=== PATIENT | female | born 1970 | race Caucasian/White ===

== ENCOUNTER 2016-05-22 02:44 | Emergency (ER) | payer OTHER ==
[~2016-05-22] VITALS: Ht 162.6 cm; Wt 137.0 kg
[~2016-05-22 02:44] MED LIST: ASPEC81 PO; B-COTAB18 PO; BUPR100T8 PO; CHOL1TAB42 PO; CYM/30 PO; DULO60CA44 PO; ETON1IMP2 SC; FERROUS SULFATE PO; TPM/50 PO; ZIPR20CA PO
[2016-05-22 02:49] VITALS: TEMP 37; Ht 162.6 cm; Wt 137.0 kg
[2016-05-22] MEDS ORDERED: ONDANSETRON INJ 2 MG/ML 2 ML VIAL IV STA (03:08)
[2016-05-22] MEDS ORDERED: HYDROmorphone INJ 1 MG/ML SYR IV STA (03:08)
[2016-05-22] MEDS ORDERED: SODIUM CHLORIDE 0.9% 1000ML 1,000 ML IV STA (03:08)
[2016-05-22 03:22] LABS: URINE APPEARANCE CLEAR (CLEAR); URINE BILIRUBIN NEG (NEG); URINE COLOR YELLOW; URINE EPITHELIAL CELL AUTO 0-5 /lpf (0-5); URINE NITRITE NEG (NEG); URINE PH 6.5 (4.5-7.5); URINE SPECIFIC GRAVITY 1.003 (1.000-1.030); UROBILINOGEN NEG (NEG); ZZUR CULT IF INDIC CLEAN CATCH NO
[2016-05-22 03:25] LABS: MANUAL MICROSCOPIC REQUIRED? NO; REVIEW REQ? NO
[2016-05-22 03:28] LABS: BASO % 0.2 %; BASO ABS # 0.02 K/uL (0-0.2); COMPLETE YES; EOS % 4.5 %; HEMATOCRIT 38.7 % (37-47); IG% 0.2 %; LYMPH % 21.6 %; LYMPH ABS # 2.02 K/uL (1.2-3.4); MEAN CELL VOLUME 86.8 fL (80-100); MEAN CORPUSCULAR HEMOGLOBIN 30.5 pg (25-34); MEAN CORPUSCULAR HGB CONC 35.1 g/dl (32-36); MONO % 7.2 %; NEUT % 66.3 %; PLATELET COUNT 290 K/uL (130-400); RED BLOOD COUNT 4.46 M/uL (4.2-5.4); WHITE BLOOD COUNT 9.34 K/uL (4.8-10.8)
--- NOTE | 2016-05-22 03:42 | EMERGENCY ROOM VISIT NOTE ---
History Report prepared by Tavon: Vicente Encinas Under the Supervision of: Dr. Neftali Sequeira M.D. First contact with patient: 02:54 Chief Complaint: ABDOMINAL PAIN Stated Complaint: UPR ABDOMINAL PAIN RADIATING TO BACK RIGHT SIDE Nursing Triage Summary: patient having mid epigastric pain since Friday night. Went to PCP Friday. was given prep for CT scan to be done today. History of Present Illness The patient is a 46 year old female who presents to the Emergency Room with complaints of constant upper abdominal pain beginning yesterday. She also complains of pain radiating into her back and right shoulder. She was seen by her PCP earlier today for similar symptoms, and was given prep for CT scan to be done today. The patient denies any fevers, vomiting, leg swelling, or diarrhea. Her pain is improved with movement. She notes that her pain initially began in her lower abdomen, but moved to the epigastric area today. The patient denies any recent falls or trauma. She notes that she felt somewhat short of breath yesterday, but not today. She has a history of a cholecystectomy. The patient states that she has been eating normally. She has no history of kidney stones, or ulcers. Source of History: patient Onset: Yesterday Position: abdomen (upper ) Timing: constant Modifying Factors (Relieving): movement Associated Symptoms: + back pain, No diarrhea, No fevers, No vomiting Note: The patient denies any leg swelling. She also complains of pain radiating into her right shoulder. Review of Systems See HPI for pertinent positives & negatives. A total of 10 systems reviewed and were otherwise negative. Past Medical & Surgical Medical Problems: (1) Hypertensive disorder, systemic arterial (2) Hypertriglyceridemia Family History No pertinent family history stated. Social History Smoking Status: Never Smoker Housing Status: lives with family Occupation Status: employed Current/Historical Medications Scheduled Aspirin Enteric Coated (Ecotrin Or Generic *), 81 MG PO QAM B-Complex Vitamins (Vitamin B Complex), 1 TAB PO QAM Bupropion (Wellbutrin Sr), 150 MG PO QAM Cholecalciferol (Vitamin D), 1 TABS PO QAM Ciprofloxacin Hcl (Cipro), 500 MG PO BID Duloxetine Hcl (Cymbalta), 30 MG PO QAM Duloxetine Hcl (Cymbalta), 60 MG PO HS Ondasetron Odt (Zofran Odt), 4-8 MG SL Q6H Topiramate (Topamax), 50 MG PO QAM Ziprasidone Hcl (Geodon), 20 MG PO BID [Ferrous Sulfate], 65 MG PO QAM Scheduled PRN Oxycodone Immediate Rel Tab (Roxicodone Ir), 1-2 TAB PO Q4H PRN for Severe Pain Miscellaneous Medications Etonogestrel (Nexplanon), 68 MG SC Allergies Coded Allergies: Latex1 -Allergic Contact Dermititis (Verified Allergy, Unknown, RASH, ) Venlafaxine (Verified Adverse Reaction, Unknown, high blood pressure, ) Physical Exam Vital Signs Date Time Temp Pulse Resp B/P Pulse Ox O2 Delivery O2 Flow Rate FiO2 05/22/16 06:31 71 18 154/79 97 Room Air 05/22/16 05:51 71 18 145/104 97 Room Air 05/22/16 02:49 37.0 83 16 154/89 96 Room Air Physical Exam GENERAL: Patient is uncomfortable appearing and in moderate distress. HEENT: No acute trauma, normocephalic atraumatic, mucous membranes moist, no nasal congestion, no scleral icterus. NECK: No stridor, no adenopathy, no meningismus, trachea is midline. LUNGS: No dyspnea. Clear to auscultation and equal bilaterally. No wheeze, no rhonchi. HEART: Regular rate and rhythm. No murmurs, rubs, gallops appreciated. ABDOMEN: Tenderness to palpation fo the right side of the abdomen, worse over the right lower quadrant. Soft, bowel sounds positive, no masses appreciated, no peritonitis. BACK: No midline tenderness, no CVA tenderness EXTREMITIES: Normal motion all extremities, no cyanosis, no edema. NEUROLOGIC: Alert and oriented, no acute motor or sensory deficits, no focal weakness, cranial nerves grossly intact. SKIN: No rash, no jaundice, no diaphoresis. Skin discoloration of the bilateral hands that appears chronic. Medical Decision & Procedures ER Provider Diagnostic Interpretation: CT results per statrad and my review. CT ABDOMEN & PELVIS: MRI pelvis 04/15/13 Mild thickening of the terminal ileus. No bowel obstruction. Mild to borderline prominent mesenteric lymph nodes. Fatty liver. Cholecystectomy. Small hiatal hernia. Normal appendix. No obstructive uropathy. 2.7 cm left uterine fibroid, seen on prior MRI. 2.5 cm cyst or follicle right ovary. Coronary artery disease. L5-S1 degenerative disc. Laboratory Results 05/22/16 03:15 Red Blood Count 4.46, Mean Corpuscular Volume 86.8, Mean Corpuscular Hemoglobin 30.5, Mean Corpuscular Hemoglobin Concent 35.1, Mean Platelet Volume 10.0, Neutrophils (%) (Auto) 66.3, Lymphocytes (%) (Auto) 21.6, Monocytes (%) (Auto) 7.2, Eosinophils (%) (Auto) 4.5, Basophils (%) (Auto) 0.2, Neutrophils # (Auto) 6.19, Lymphocytes # (Auto) 2.02, Monocytes # (Auto) 0.67, Eosinophils # (Auto) 0.42, Basophils # (Auto) 0.02 05/22/16 03:15 Test 05/22/16 00:00 05/22/16 03:15 Urine Color YELLOW Urine Appearance CLEAR (CLEAR) Urine pH 6.5 (4.5-7.5) Urine Specific [place] 1.003 (1.000-1.030) Urine Protein NEG (NEG) Urine Glucose (UA) NEG (NEG) Urine Ketones NEG (NEG) Urine Occult Blood NEG (NEG) Urine Nitrite NEG (NEG) Urine Bilirubin NEG (NEG) Urine Urobilinogen NEG (NEG) Urine Leukocyte Esterase NEG (NEG) Urine WBC (Auto) 0 /hpf (0-5) Urine RBC (Auto) 0-4 /hpf (0-4) Urine Hyaline Casts (Auto) 0 /lpf (0-5) Urine Epithelial Cells (Auto) 0-5 /lpf (0-5) Urine Bacteria (Auto) NEG (NEG) Urine Test NEG (NEG) White Blood Count 9.34 K/uL (4.8-10.8) Red Blood Count 4.46 M/uL (4.2-5.4) Hemoglobin 13.6 g/dL (12.0-16.0) Hematocrit 38.7 % (37-47) Mean Corpuscular Volume 86.8 fL (80-100) Mean Corpuscular Hemoglobin 30.5 pg (25-34) Mean Corpuscular Hemoglobin Concent 35.1 g/dl (32-36) Platelet Count 290 K/uL (130-400) Mean Platelet Volume 10.0 fL (7.4-10.4) Neutrophils (%) (Auto) 66.3 % Lymphocytes (%) (Auto) 21.6 % Monocytes (%) (Auto) 7.2 % Eosinophils (%) (Auto) 4.5 % Basophils (%) (Auto) 0.2 % Neutrophils # (Auto) 6.19 K/uL (1.4-6.5) Lymphocytes # (Auto) 2.02 K/uL (1.2-3.4) Monocytes # (Auto) 0.67 K/uL (0.11-0.59) Eosinophils # (Auto) 0.42 K/uL (0-0.5) Basophils # (Auto) 0.02 K/uL (0-0.2) RDW Standard Deviation 42.0 fL (36.4-46.3) RDW Coefficient of Variation 13.2 % (11.5-14.5) Immature Granulocyte % (Auto) 0.2 % Immature Granulocyte # (Auto) 0.02 K/uL (0.00-0.02) Anion Gap 10.0 mmol/L (3-11) Est Creatinine Clear Calc Drug Dose 139.5 ml/min Estimated GFR () 120.1 Estimated GFR (Non- 103.7 BUN/Creatinine Ratio 14.5 (10-20) Calcium Level 9.0 mg/dl (8.5-10.1) Total Bilirubin 0.4 mg/dl (0.2-1) Direct Bilirubin 0.1 mg/dl (0-0.2) Aspartate Amino Transf (AST/SGOT) 15 U/L (15-37) Alanine Aminotransferase (ALT/SGPT) 44 U/L (12-78) Alkaline Phosphatase 71 U/L (45-117) Troponin I < 0.015 ng/ml (0-0.045) Total Protein 7.0 gm/dl (6.4-8.2) Albumin 3.3 gm/dl (3.4-5.0) Lipase 125 U/L (73-393) Laboratory results as reviewed by me. Medications Administered Medications (Trade) Dose Ordered Sig/Mamadou Route Start Time Stop Time Status Last Admin Dose Admin Sodium Chloride (Nss 1000ml) 1,000 ml @ 999 mls/hr Q1H1M STAT IV 05/22/16 03:08 05/22/16 04:08 DC 05/22/16 03:17 999 MLS/HR Hydromorphone HCl (Dilaudid Inj) 1 mg NOW STAT IV 05/22/16 03:08 05/22/16 03:10 DC 05/22/16 03:16 1 MG Ondansetron HCl (Zofran Inj) 4 mg NOW STAT IV 05/22/16 03:08 05/22/16 03:10 DC 05/22/16 03:16 4 MG ECG Indication: abdominal pain Rate (beats per minute): 76 Rhythm: normal sinus Findings: no acute ischemic change, no ectopy ED Course 0300: The patient was evaluated in room A2. A complete history and physical exam was performed. 0308: Ordered Zofran Inj 4 mg IV, Dilaudid Inj 1 mg IV, NSS 1000 mL @ 999 mL/hr IV. 0405: I checked in on the patient. Her symptoms are much improved. 0627: Reevaluated the patient. Discussed results and discharge instructions: she verbalized understanding and agreement. The patient is ready for discharge. Medical Decision Differential: Appendicitis, Diverticulitis, PUD/Gastritis, Biliary Pathology, UTI, Pyelonephritis, Renal Colic, Bowel Obstruction, Aortic Pathology, Acute Coronary Syndrome, amongst other pathologies entertained. 46 yr old female arrives with complaint of rapidly worsening RUQ abdominal pain with radiation to rest of abdomen as well as periodic right shoulder blade pain. No difficulty breathing nor chest pain. She has no history nor risk factors for PE and thus I do not feel dimer necessary. She is uncomfortable though not in extremis and does not have an acute surgical abdomen on initial evaluation. Given PCP was to had CT w po/iv contrast in a few hours this morning we will do that here instead. Initial dose dilaudid with resolution of pain and feeling well over next few hours. She has normal labs and unremarkable UA. EKG/Trop negative. Symptoms not consistent with kidney stone and no blood in urine. CT showing terminal ilium inflammation which is concerning for inflammatory bowel disease, but also some mesenteric adenitis. Given level of pain she is having, ilium swelling seems reasonable to try some cipro as outpatient, but RTED if worsening symptoms or other concerns. Advised she contact PCP later today to let them know what happened and to have them review chart/CT findings. Advised discussing being seen by GI (last colonoscopy 6 yrs ago and supposed to be every 3 per patient). Stable and in no distress thus seems reasonable to discharge and understands she can return at any time if further concerns or issues. Impression Primary Impression: Terminal ileitis Additional Impression: Mesenteric adenitis Scribe Attestation The scribe's documentation has been prepared under my direction and personally reviewed by me in its entirety. I confirm that the note above accurately reflects all work, treatment, procedures, and medical decision making performed by me. Departure Information Dispostion Home / Self-Care Prescriptions Oxycodone Immediate Rel Tab (ROXICODONE IR) 5 Mg Tab 1-2 TAB PO Q4H Y for Severe Pain, #15 TAB Prov: Neftali Sequeira M.D. 05/22/16 Ondasetron Odt (ZOFRAN ODT) 4 Mg Tab 4-8 MG SL Q6H for Nausea, #20 TAB Prov: Neftali Sequeira M.D. 05/22/16 Ciprofloxacin Hcl (CIPRO) 500 Mg Tab 500 MG PO BID, #14 TAB Prov: Neftali Sequeira M.D. 05/22/16 Referrals Primary Care Provider Patient Instructions ED Adenitis Mesenteric, My [facility] Additional Instructions You have received a narcotic pain medication prescription. These medications may cause drowsiness and should not be used with other sedative medications. Do not drive, drink alcohol, perform dangerous activities, nor make important decisions after taking these medications. terminal supervisor use or inappropriate use may lead to addiction. Problem Qualifiers Primary Impression: Terminal ileitis Digestive disease complication type: without complication Qualified Codes: K50.00 - Crohn's disease of small intestine without complications
[2016-05-22 04:15] LABS: ALT/SGPT 44 U/L (12-78); AST/SGOT 15 U/L (15-37); BLOOD UREA NITROGEN 10 mg/dl (7-18); BUN/CREATININE RATIO 14.5 (10-20); CARBON DIOXIDE 25 mmol/L (21-32); CHLORIDE 106 mmol/L (98-107); CREATININE 0.69 mg/dl (0.60-1.20); GLUCOSE 116 mg/dl (70-99); POTASSIUM 3.8 mmol/L (3.5-5.1); SODIUM 141 mmol/L (136-145)
[2016-05-22 04:20] LABS: ALKALINE PHOSPHATASE 71 U/L (45-117)
[2016-05-22] MEDS ORDERED: OPTIRAY 320 IV PRN (05:00)
[2016-05-22 06:31] VITALS: BP 154/79; PULSE 71; O2SAT 97
[2016-05-22] MEDS ORDERED: OXYC1TAB3 PO (06:32)
[2016-05-22] MEDS ORDERED: ONDA4TAB10 SL (06:32)
[2016-05-22] MEDS ORDERED: CIPR-255 PO (06:32)
--- NOTE | 2016-05-22 07:59 | DIAGNOSTIC IMAGING REPORT ---
CT OF THE ABDOMEN AND PELVIS WITH CONTRAST CLINICAL HISTORY: Right upper quadrant abdominal pain radiating to back/abdomen. COMPARISON STUDY: MRI of the pelvis April 15, 2013 TECHNIQUE: Following IV administration of Optiray-320, axial images of the abdomen and pelvis were obtained from the lung bases to the proximal femurs. Images were reviewed in the axial, sagittal, and coronal planes. IV contrast was administered without complication. CT DOSE: 2200.66 mGy.cm FINDINGS: Extensive coronary artery calcification is incidentally noted. There is fatty infiltration of liver and moderate hepatomegaly. The adrenal glands, kidneys and pancreas are normal. There is no biliary ductal dilatation status post cholecystectomy. There is no peripancreatic infiltration. There is no hydronephrosis. The caliber and wall thickness of small and large bowel are normal. The appendix is normal. There is a 2.6 cm suspected right ovarian cyst. A left uterine fibroid measuring approximately 3.7 cm was shown on prior MRI of April 15, 2013. Submucosal fat deposition of the terminal ileum is chronic. IMPRESSION: 1. No acute process within the abdomen or pelvis. 2. Fatty liver and moderate hepatomegaly. 3. Normal appendix. Electronically signed by: Obie Ruiz M.D. 05/22/2016 7:57 AM Dictated Date/Time: 05/22/2016 7:45 AM
[2016-06-12] MEDS ORDERED: GARLTAB3 PO (15:40)
[2016-06-12] MEDS ORDERED: ASCO500T16 PO (15:40)
[2016-06-12] MEDS ORDERED: MULT-506 PO (15:40)
[2016-06-12] MEDS ORDERED: BUPR200T2 PO (15:40)
[2016-06-12] MEDS ORDERED: IRON PO (15:40)
== END 2016-05-22 06:40 | disposition home or self-care (01) ==
LOC: C.EDB 02:45 → C.EDA 06:40
DX: K50.00 Crohn's disease of small intestine without complications (principal); I10 Essential (primary) hypertension; E78.1 Pure hyperglyceridemia

== ENCOUNTER → 2016-06-06 | Outpatient (CLI) | payer OTHER ==
[~2016-06-06] MED LIST changes: +ASCO500T16 PO; +ASPI-461 PO; +ATR10 PO; +BUPR200T2 PO; +CIPR-255 PO; +DVN80 PO; +FERR50TA3 PO; +GARL1TAB8 PO; +GARLTAB3 PO; +IRON PO; +METH4PAK PO; +MULT-506 PO; +ONDA4TAB10 SL; +OXYC1TAB3 PO
--- NOTE | 2016-06-06 16:46 | MAMMOGRAPHY REPORT ---
BILATERAL DIGITAL SCREENING MAMMOGRAM WITH CAD: 06/06/2016 TECHNIQUE: Current study was also evaluated with a Computer Aided Detection (CAD) system. Bilatera l CC and MLO views were obtained. COMPARISON: 12/26/2010. BREAST COMPOSITION: There are scattered areas of fibroglandular density in both breasts. FINDINGS: There is a small cluster of calcifications in the right superior breast, possibly project ing laterally on the cc view although difficult to tell due to slight motion in the right lateral br east on the cc view. Recommend spot magnification views for further evaluation. Also recommend rep eat right cc view due to motion. The remainder of both breasts are stable compared to the prior exam, without suspicious masses, calc ifications, or areas of architectural distortion noted. IMPRESSION: ACR BI-RADS CATEGORY 0: INCOMPLETE EVALUATION: NEED ADDITIONAL IMAGING EVALUATION Small cluster of calcifications in the right superior breast, for which additional imaging evaluatio n is recommended. Also recommend repeat right cc view due to motion artifact. The patient will be called to schedule an appointment. Approximately 10% of breast cancers are not detected with mammography. A negative mammographic repor t should not delay biopsy if a clinically suggestive mass is present. Radha Anderson M.D. ah/:06/06/2016 15:57:21 Cigar Head Holer: Myrna RAMIREZ(Ally)(Daphne)([place]), [facility] letter sent: Addl Imaging 0 BI-RADS Code: ACR BI-RADS Category 0: Incomplete Evaluation: Need Additional Imaging Evaluation
== END | disposition home or self-care (01) ==
LOC: C.MAMM 15:00
PROVIDERS: ATTEND Obstetrics & Gynecology
DX: Z12.31 Encounter for screening mammogram for malignant neoplasm of breast (principal); R92.1 Mammographic calcification found on diagnostic imaging of breast

== ENCOUNTER → 2016-06-20 | Day surgery (SDC) | payer OTHER ==
[2016-06-12 15:41] VITALS: Ht 162.6 cm; Wt 136.4 kg
[~2016-06-20] VITALS: Ht 162.6 cm; Wt 136.4 kg
[~2016-06-20] MED LIST changes: -BUPR100T8 PO; -CIPR-255 PO; -CYM/30 PO; -FERROUS SULFATE PO; +LIDOCAINE HCL 2% 2 ML VIAL (20MG/ML) ONE; -ONDA4TAB10 SL; -OXYC1TAB3 PO; +PROPOFOL IV EMULSION 10 MG/ML 20 ML VIAL IV ONE; +SODIUM CHLORIDE 0.9% 500ML 500 ML IV ONE; -TPM/50 PO; -ZIPR20CA PO
[2016-06-20 12:48] VITALS: TEMP 36.8
--- NOTE | 2016-06-20 12:54 | Endo History and Physical ---
History & Physical Date of Service: Jun 20, 2016. Chief Complaint: epigastric,rt. upper quadrant pain Referring Physician: Dr. Leena Carlson History of Present Illness RUQ pain; hx colon polyps; + FH CRC Past Medical History Arthritis, Anxiety, Sleep Apnea, Depression Past Surgical History Hx Cardiac Surgery: No Hx Internal Defibrillator: No Hx Pacemaker: No Hx Abdominal Surgery: Yes (JHONNY, UMBILICAL HERNIA) Hx of Implantable Prosthesis: No Hx Post-Op Nausea and Vomiting: No Hx Cancer Surgery: No Hx Thoracic Surgery: No Hx Orthopedic: No Hx Urinary Tract Surgery: No Family History Colon CA Social History Smoking Status: Never Smoker Hx Substance Use: No Hx Alcohol Use: Yes (OCCAS) Allergies Coded Allergies: Latex1 -Allergic Contact Dermititis (Verified Allergy, Unknown, RASH, ) Venlafaxine (Verified Adverse Reaction, Unknown, high blood pressure, ) Current Medications Reported Home Medications Medications Dose Route/Sig Max Daily Dose Days Date Category Dose Instructions [Garlic] 1 Tab PO QAM 06/12/16 Reported Multivitamin (Multivitamins) Tab 1 Tab PO QAM 06/12/16 Reported Ascorbic Acid 500 Mg Tab 500 Mg PO QAM 06/12/16 Reported [Iron] 65 Mg PO QAM 06/12/16 Reported Wellbutrin Sr (Bupropion Hcl) 200 Mg Tab 200 Mg PO QAM 06/12/16 Reported Vitamin B Complex (B-Complex Vitamins) 1 Tab Tab 1 Tab PO QAM 10/26/14 Reported Nexplanon (Etonogestrel) 68 Mg Imp 68 Mg SC 08/29/14 Reported IMPLANTED BC RT UPPER ARM Vitamin D (Cholecalciferol) 5,000 Unit Tab 1 Tabs PO QAM 10/11/13 Reported Ecotrin Or Generic * (Aspirin) 81 Mg Ectab 81 Mg PO QAM 04/29/11 Reported Vital Signs Weight (Kilograms): 136.36 Height (Feet): 5 Height (Inches): 4 Date Time Temp Pulse Resp B/P Pulse Ox O2 Delivery O2 Flow Rate FiO2 06/20/16 12:48 36.8 78 20 160/96 96 Room Air Physical Exam AAO x3 Nl s1s2 Lungs CTA Abd soft NT/ND + BS - CCE Abd soft NT/ND + BS - CCE Assessment and Plan EGD/Colon
--- NOTE | 2016-06-20 14:40 | Discharge Instructions ---
Endoscopy Patient Instructions Date / Procedure(s) Performed Jun 20, 2016. Colonoscopy, EGD Allergy Information Coded Allergies: Latex1 -Allergic Contact Dermititis (Verified Allergy, Unknown, RASH, ) Venlafaxine (Verified Adverse Reaction, Unknown, high blood pressure, ) Discharge Date / Findings Jun 20, 2016. EGD-gastritis colonoscopy with ileitis; rectal polyp Medication Instructions Stopped Medication(s): stopped all vitamins and supplements week ago Restart Stopped Medication(s): Reported Home Medications Medications Dose Route/Sig Max Daily Dose Days Date Category Dose Instructions [Garlic] 1 Tab PO QAM 06/12/16 Reported Multivitamin (Multivitamins) Tab 1 Tab PO QAM 06/12/16 Reported Ascorbic Acid 500 Mg Tab 500 Mg PO QAM 06/12/16 Reported [Iron] 65 Mg PO QAM 06/12/16 Reported Wellbutrin Sr (Bupropion Hcl) 200 Mg Tab 200 Mg PO QAM 06/12/16 Reported Vitamin B Complex (B-Complex Vitamins) 1 Tab Tab 1 Tab PO QAM 10/26/14 Reported Nexplanon (Etonogestrel) 68 Mg Imp 68 Mg SC 08/29/14 Reported IMPLANTED BC RT UPPER ARM Vitamin D (Cholecalciferol) 5,000 Unit Tab 1 Tabs PO QAM 10/11/13 Reported Ecotrin Or Generic * (Aspirin) 81 Mg Ectab 81 Mg PO QAM 04/29/11 Reported Reported Home Medications Medications Dose Route/Sig Max Daily Dose Days Date Category Dose Instructions [Garlic] 1 Tab PO QAM 06/12/16 Reported Multivitamin (Multivitamins) Tab 1 Tab PO QAM 06/12/16 Reported Ascorbic Acid 500 Mg Tab 500 Mg PO QAM 06/12/16 Reported [Iron] 65 Mg PO QAM 06/12/16 Reported Wellbutrin Sr (Bupropion Hcl) 200 Mg Tab 200 Mg PO QAM 06/12/16 Reported Vitamin B Complex (B-Complex Vitamins) 1 Tab Tab 1 Tab PO QAM 10/26/14 Reported Nexplanon (Etonogestrel) 68 Mg Imp 68 Mg SC 08/29/14 Reported IMPLANTED BC RT UPPER ARM Vitamin D (Cholecalciferol) 5,000 Unit Tab 1 Tabs PO QAM 10/11/13 Reported Ecotrin Or Generic * (Aspirin) 81 Mg Ectab 81 Mg PO QAM 04/29/11 Reported Provider Instructions Activity Restrictions - No exercising or heavy lifting for 24 hours. - Do not drink alcohol the day of the procedure. - Do not drive a car or operate machinery until the day after the procedure. - Do not make any important decisions or sign important papers in 24 hours after the procedure. Following Day: - Return to full activity which may include returning to work/school. Diet Start your diet with liquids and light foods (jello, soup, juice, toast). Then eat your usual diet if not nauseated. Treatment For Common After Affects For mild abdominal pain, bloating, or excessive gas: - Rest - Eat lightly - Lie on right side Follow-Up Information Follow-up with Dr. Leena Carlson as scheduled Anesthesia Information What You Should Know You have had a procedure that required some medicine to reduce anxiety and discomfort. This treatment is called moderate sedation. After receiving the treatment, you may be sleepy, but you will be able to breathe on your own. The effects of the treatment may last for several hours. Follow these instructions along with Activity/Diet recommendations noted above: * Do NOT do anything where dizziness or clumsiness would be dangerous. * Rest quietly at home today, then you can be up and about tomorrow. * Have a responsible person stay with you the rest of today. * You may have had an I.V. today. If so, you may take the dressing off later today. Recommendations Call your doctor if: * Trouble breathing * Continuous vomiting for more than 24 hours * Temperature above 101 degrees * Severe abdominal pain or bloating * Pain not relieved by pain medicine ordered * There is increased drainage or redness from any incision * A large amount of rectal bleeding greater than 2-3 tablespoons. (If you had a polyp/s removed or have hemorrhoids, a small amount of blood - from the rectum is to be expected.) * You have any unanswered questions or concerns. IN THE EVENT OF A SERIOUS EMERGENCY, GO TO THE NEAREST EMERGENCY ROOM Your discharge instructions were prepared by provider Mike Dietrich. Patient Instructions Signature Page Claudia Gutierrez Patient (or Guardian) Signature/Date: I have read and understand the instructions given to me by my caregivers. Caregiver/RN/Doctor Signature/Date: The above-named patient and/or guardian has received patient instructions on this date. + Original Patient Signature Page (only) stays with chart. Please make copy for patient.
--- NOTE | 2016-06-20 14:50 | Anesthesiology Progress Note ---
Anesthesia Post Op Note Date & Time Jun 20, 2016 at 14:50 Vital Signs Pain Intensity: 0 Vital Signs Past 12 Hours Date Time Temp Pulse Resp B/P Pulse Ox O2 Delivery O2 Flow Rate FiO2 06/20/16 14:45 71 147/98 98 06/20/16 14:30 81 20 148/79 93 06/20/16 14:27 82 20 116/71 94 06/20/16 12:48 36.8 78 20 160/96 96 Room Air Notes Mental Status: alert / awake / arousable, participated in evaluation Pt Amnestic to Procedure: Yes Nausea / Vomiting: adequately controlled Pain: adequately controlled Airway Patency, RR, SpO2: stable & adequate BP & HR: stable & adequate Hydration State: stable & adequate Anesthetic Complications: no major complications apparent
[2016-06-20 15:00] VITALS: BP 157/92
--- NOTE | 2016-06-20 15:08 | GI REPORT ---
Procedure Date: 06/20/2016 1:28 PM Procedure: EGD/Small bowel enteroscopy Indications: Abdominal pain in the right upper quadrant Medicines: Propofol per Anesthesia Complications: No immediate complications. Estimated blood loss: Minimal. Estimated Blood Loss: Estimated blood loss was minimal. Procedure: Pre-Anesthesia Assessment: - Prior to the procedure, a History and Physical was performed, and patient medications and allergies were reviewed. The patient's tolerance of previous anesthesia was also reviewed. The risks and benefits of the procedure and the sedation options and risks were discussed with the patient. All questions were answered, and informed consent was obtained. Prior Anticoagulants: The patient has taken no previous anticoagulant or antiplatelet agents. ASA Grade Assessment: III - A patient with severe systemic disease. After reviewing the risks and benefits, the patient was deemed in satisfactory condition to undergo the procedure. After obtaining informed consent, the endoscope was passed under direct vision. Throughout the procedure, the patient's blood pressure, pulse, and oxygen saturations were monitored continuously. The scope was introduced through the mouth, and advanced to the jejunum. After obtaining informed consent, the endoscope was passed under direct vision. Throughout the procedure, the patient's blood pressure, pulse, and oxygen saturations were monitored continuously.The upper GI endoscopy was accomplished without difficulty. The patient tolerated the procedure well. Findings: The examined esophagus was normal. Diffuse mildly erythematous mucosa without bleeding was found in the gastric body and in the gastric antrum. Biopsies were taken with a cold forceps for Helicobacter pylori testing. Verification of patient identification for the specimen was done by the physician and cryptologic technician using the patient's name and medical record number. The examined duodenum was normal. Biopsies for histology were taken with a cold forceps for evaluation of celiac disease. Estimated blood loss was minimal. Verification of patient identification for the specimen was done by the physician and cryptologic technician using the patient's name and medical record number. The examined jejunum was normal. The cardia and gastric fundus were normal on retroflexion. Impression: - Normal esophagus. - Erythematous mucosa in the gastric body and antrum. Biopsied. - Normal examined duodenum. Biopsied. - Normal examined jejunum. Recommendation: - Discharge patient to home (ambulatory). - Patient has a contact number available for emergencies. The signs and symptoms of potential delayed complications were discussed with the patient. Return to normal activities tomorrow. Written discharge instructions were provided to the patient. - Resume regular diet. - Await pathology results. - Return to referring physician as previously scheduled. MD Mike Quinonez MD 06/20/2016 2:32:46 PM This report has been signed electronically. Note Initiated On: 06/20/2016 1:28 PM I attest to the content of the Intraoperative Record and orders documented therein, exceptions below
== END | disposition home or self-care (01) ==
LOC: C.GI 12:13
PROVIDERS: ATTEND Internal Medicine Gastroenterology
DX: Z12.11 Encounter for screening for malignant neoplasm of colon (principal); K62.1 Rectal polyp; R10.13 Epigastric pain; R10.11 Right upper quadrant pain; Z86.010 Personal history of colon polyps; Z80.0 Family history of malignant neoplasm of digestive organs; G47.30 Sleep apnea, unspecified

== ENCOUNTER → 2016-06-26 | Outpatient (CLI) | payer OTHER ==
[~2016-06-26] MED LIST changes: -LIDOCAINE HCL 2% 2 ML VIAL (20MG/ML) ONE; -PROPOFOL IV EMULSION 10 MG/ML 20 ML VIAL IV ONE; -SODIUM CHLORIDE 0.9% 500ML 500 ML IV ONE
--- NOTE | 2016-06-26 14:25 | MAMMOGRAPHY REPORT ---
UNILATERAL RIGHT DIGITAL DIAGNOSTIC MAMMOGRAM: 06/26/2016 CLINICAL HISTORY: Callback from screening mammogram for right breast calcifications. TECHNIQUE: Spot magnification right cc and ML views and repeat right cc views were obtained. COMPARISON: Comparison is made to exam dated: 06/06/2016 mammogram - [facility]. BREAST COMPOSITION: There are scattered areas of fibroglandular density in the right breast. FINDINGS: Spot magnification views of the right breast demonstrate a small 8 mm cluster of faint guille rphous calcifications seen within the right upper outer quadrant, not clearly evident on the prior e xams. The calcifications are not clearly layering on the lateral view to suggest milk of calcium. The calcifications are indeterminant and stereotactic biopsy is recommended for further evaluation. IMPRESSION: ACR BI-RADS CATEGORY 4: SUSPICIOUS New 8 mm cluster of calcifications in the right upper outer quadrant. The calcifications are indete rminate and stereotactic biopsy is recommended for further evaluation. A phone call was made to the physician's office to confirm faxed results were received. The patient has been verbally notified of the results. She tentatively scheduled the biopsy before leaving the department. I will leave it up to the patient's physician if she can safely discontinue baby aspir in for 5 days prior to the procedure. Approximately 10% of breast cancers are not detected with mammography. A negative mammographic repor t should not delay biopsy if a clinically suggestive mass is present. Radha Anderson M.D. /:06/26/2016 08:37:42 Hybrid Car Mechanic: Queenie JONES)(Daphne), [facility] letter sent: Abnormal 4/5 BI-RADS Code: ACR BI-RADS Category 4: Suspicious
== END | disposition home or self-care (01) ==
LOC: C.MAMM 08:02
PROVIDERS: ATTEND Obstetrics & Gynecology
DX: R92.1 Mammographic calcification found on diagnostic imaging of breast (principal)

== ENCOUNTER → 2016-07-30 | Outpatient (CLI) | payer OTHER ==
[~2016-07-30] MED LIST changes: +LISI20TA3 PO
--- NOTE | 2016-07-30 15:16 | DIAGNOSTIC IMAGING REPORT ---
L-SPINE MIN 4 VIEWS ROUTINE CLINICAL HISTORY: L HIP PAIN COMPARISON STUDY: No previous studies for comparison. FINDINGS: There is a mild levoscoliosis. There is no pathologic bowel dilatation. There are surgical clips in the right upper quadrant consistent with a prior cholecystectomy. No acute fractures or subluxations are visualized. There are mild multilevel degenerative changes most pronounced the L4-5 and L5-S1 levels. IMPRESSION: Mild scoliosis and multilevel degenerative change. No fractures or subluxations identified. Electronically signed by: Jovon Leiva M.D. 07/30/2016 3:14 PM Dictated Date/Time: 07/30/2016 3:14 PM
--- NOTE | 2016-07-30 15:17 | DIAGNOSTIC IMAGING REPORT ---
LEFT HIP 2 VIEWS HISTORY: L HIP PAIN COMPARISON: None. FINDINGS: There is no fracture or dislocation. Soft tissues are unremarkable. No radiopaque foreign bodies. Cartilage spaces are maintained for age. IMPRESSION: Unremarkable left hip. Electronically signed by: Juan Miguel Fabian M.D. 07/30/2016 3:14 PM Dictated Date/Time: 07/30/2016 3:14 PM
[2016-07-30 17:01] LABS: BASO % 0.5 %; BASO ABS # 0.05 K/uL (0-0.2); COMPLETE YES; EOS % 4.9 %; HEMATOCRIT 43.2 % (37-47); IG% 0.3 %; LYMPH % 26.6 %; LYMPH ABS # 2.85 K/uL (1.2-3.4); MEAN CELL VOLUME 89.3 fL (80-100); MEAN CORPUSCULAR HEMOGLOBIN 30.2 pg (25-34); MEAN CORPUSCULAR HGB CONC 33.8 g/dl (32-36); MEAN PLATELET VOLUME 10.1 fL (7.4-10.4); NEUT % 60.7 %; PLATELET COUNT 368 K/uL (130-400); RED BLOOD COUNT 4.84 M/uL (4.2-5.4); WHITE BLOOD COUNT 10.71 K/uL (4.8-10.8)
== END | disposition home or self-care (01) ==
LOC: C.LABBC 14:36
PROVIDERS: ATTEND Obstetrics & Gynecology
DX: M25.552 Pain in left hip (principal); M54.5 Low back pain; M41.9 Scoliosis, unspecified

== ENCOUNTER → 2016-10-16 | Outpatient (CLI) | payer OTHER ==
[~2016-10-16] MED LIST changes: -LISI20TA3 PO
--- NOTE | 2016-10-16 14:02 | Discharge Instructions ---
Discharge Instructions Procedure Procedure Date: Oct 16, 2016. Reason for visit: Right Calcifications. Discharge Discharge Date: Oct 16, 2016. Discharge Diagnosis: post right breast stereotactic guided biopsy Medications Restart Stopped Medication(s): Continue Aspirin as per usual Instructions Activity Recommendations: Additional Limitations (see below) Return to School/Work: no limitations Recommended Home Diet: No Limitations Provider Instructions: ACTIVITY RECOMMENDATIONS: * No lifting, pushing, pulling or exercising the affected side for three days. RETURN TO SCHOOL/WORK: * You may return to work/school after the procedure, but do not perform any strenuous activities for 24 to 48 hours. MEDICATIONS: * Tylenol (two 325 mg) every four to six hours if needed for mild pain (if not allergic to Tylenol). DIET: * Resume previous diet. SPECIAL CARE INSTRUCTIONS: * Keep biopsy site dry for 24 hours. May shower after 24 hours, but do not soak (bathe) incision. * May remove Tegaderm (plastic patch) tomorrow AFTER showering. * Leave the steri-strips on for one week. Allow the steri-strips to fall off by themselves. If not off after one week, you may remove them. You may place a Bandaid crosswise over the strips, if desired. * Apply ice 10 minutes on and 10 minutes off as needed. * Wear a bra at bedtime to sleep more comfortably for 2-3 days. * Your referring physician should have the results after approximately 5 to 7 business days. * Call for unusual bleeding, fever, drainage, etc or if you have any questions call [phone] during normal business hours or after hours call Dr Le, . FOLLOW UP VISIT: Follow-up with Referring Physician as scheduled. Allergies Coded Allergies: Latex1 -Allergic Contact Dermititis (Verified Allergy, Unknown, RASH, ) Venlafaxine (Verified Adverse Reaction, Unknown, high blood pressure, ) Marshall Miller Recommendations: Call your doctor if: * Temperature above 101 degrees * Pain not relieved by pain medicine ordered * There is increased drainage or redness from any incision * You have any unanswered questions or concerns. Your Doctors Instructions noted above were prepared by provider Zuleika Le. Patient Signature Section: Patient Instructions Signature Page Claudia Gutierrez Patient (or Guardian) Signature/Date: I have read and understand the instructions given to me by my caregivers. Caregiver/RN/Doctor Signature/Date: The above-named patient and/or guardian has received patient instructions on this date. + Original Patient Signature Page (only) stays with chart. Please make copy for patient.
--- NOTE | 2016-10-16 15:51 | MAMMOGRAPHY REPORT ---
UNILATERAL RIGHT DIGITAL DIAGNOSTIC MAMMOGRAM: 10/16/2016 CLINICAL HISTORY: Status post stereotactic biopsy of an indeterminate cluster of microcalcifications in the right upper outer quadrant. Please refer to the report from right breast stereotactic guided biopsy performed at the same time fo r full detail. IMPRESSION: POST PROCEDURE IMAGING FOR MARKER PLACEMENT Please refer to the report from right breast stereotactic guided biopsy performed at the same time fo r full detail. Approximately 10% of breast cancers are not detected with mammography. A negative mammographic report should not delay biopsy if a clinically suggestive mass is present. Zuleika Le M.D. ay/:10/16/2016 14:03:44 Home Economics Teacher: Ramin Reese RT(R)(M), [facility] BI-RADS Code: Post Procedure Imaging For Marker Placement
--- NOTE | 2016-10-16 15:51 | MAMMOGRAPHY REPORT ---
STEREOTACTIC GUIDED BIOPSY RIGHT BREAST: 10/16/2016 CLINICAL HISTORY: Indeterminate 8 mm cluster of microcalcifications in the right upper outer quadrant . Patient presents for stereotactic guided biopsy. COMPARISON: Comparison is made to exams dated: 06/26/2016 mammogram, 06/06/2016 mammogram, and 12/27/19 11 mammogram - [facility]. PATIENT CONSENT: After explaining the risks, benefits and alternatives of the procedure to the patien t, informed consent was obtained both verbally and in writing. Specific risks include: Bleeding, inf ection, puncture of adjacent structure, pain, nontarget biopsy, sampling error, metal allergy and med ication reaction. PROCEDURE DESCRIPTION: A time-out was performed and the right breast was confirmed as the site of bio psy. The patient was placed prone on the stereotactic biopsy table and the breast was placed in later almedial compression. A masonry supervisor image was obtained that demonstrated the clustered microcalcifications in question. They are amenable to sterotactic biopsy. Then +15 and -15 stereo pair images were ob tained. The calcifications were targeted utilizing the coordinates obtained by the computer. The ski n was prepped with Betadine. 1% Lidocaine with and without epinipherine was administered as local ane sthesia. A small skin incision was made. Through the incision, the needle was inserted to the depth determined by the computer. 9 samples were obtained using a [employer] 9-gauge vacuum-assisted biops y device. The specimen radiograph demonstrated several event representative microcalcifications, therefore, a metallic marker was placed at the biopsy site. There was no immediate complication. Hemostasis was achieved after several minutes of manual compression. The samples were sent to pathology in 1 appro priately labeled container. Postprocedure CC and ML views of the right breast were obtained. There is a 3.8 x 2.3 x 2.5 cm leah smita at the site of the biopsy in the right upper outer posterior breast. A metallic biopsy marker i s in place. Given the small hematoma formation at the biopsy site, the patient was wrapped with an A ce bandage as a pressure dressing and left our department in satisfactory condition. IMPRESSION: STEREOTACTIC GUIDED BIOPSY Status post right breast stereotactic guided biopsy of a new 8 mm clustered microcalcifications in th e right upper outer quadrant. A biopsy marker was placed at the site. The patient will receive notification of the biopsy results from her referring physician. Zuleika Le M.D. ay/:10/16/2016 14:40:45 Tearoom Host: Ramin JONES)(M), [facility]
== END | disposition home or self-care (01) ==
LOC: C.MAMM 12:57
PROVIDERS: ATTEND Obstetrics & Gynecology
DX: R92.0 Mammographic microcalcification found on diagnostic imaging of breast (principal)

== ENCOUNTER → 2016-10-21 | Outpatient (CLI) | payer OTHER | END | disposition home or self-care (01) | LOC: C.PAPS 13:08 | PROVIDERS: ATTEND Obstetrics & Gynecology | DX: Z11.3 Encounter for screening for infections with a predominantly sexual mode of transmission (principal) ==

== ENCOUNTER 2016-10-31 10:31 | Observation (INO) | payer OTHER ==
[~2016-10-31] VITALS: Ht 162.6 cm; Wt 132.8 kg
[~2016-10-31 10:31] MED LIST changes: -ASPI-461 PO; -ATR10 PO; -DULO60CA44 PO; -DVN80 PO; -FERR50TA3 PO; -GARL1TAB8 PO; -METH4PAK PO
[2016-10-31] MEDS ORDERED: ATR10 PO (11:09)
[2016-10-31] MEDS ORDERED: FERR50TA3 PO (11:09)
[2016-10-31] MEDS ORDERED: GARL1TAB8 PO (11:09)
[2016-10-31] MEDS ORDERED: ASPI-461 PO (11:09)
[2016-10-31] MEDS ORDERED: DULO60CA44 PO (11:09)
[2016-10-31 11:47] LABS: HEMATOCRIT 41.5 % (37-47); MEAN CELL VOLUME 87.4 fL (80-100); MEAN CORPUSCULAR HEMOGLOBIN 30.9 pg (25-34); MEAN CORPUSCULAR HGB CONC 35.4 g/dl (32-36); MEAN PLATELET VOLUME 9.7 fL (7.4-10.4); PLATELET COUNT 349 K/uL (130-400); RED BLOOD COUNT 4.75 M/uL (4.2-5.4); WHITE BLOOD COUNT 9.03 K/uL (4.8-10.8)
[2016-10-31 11:55] LABS: CALCIUM 8.9 mg/dl (8.5-10.1); CREATININE 0.76 mg/dl (0.60-1.20); POTASSIUM 3.6 mmol/L (3.5-5.1)
[2016-10-31 11:58] LABS: ALB/GLOB RATIO 0.9 (0.9-2)
[2016-10-31 11:59] LABS: INR 0.9 (0.9-1.1); PARTIAL THROMBOPLASTIN RATIO 1.2
--- NOTE | 2016-10-31 11:59 | DIAGNOSTIC IMAGING REPORT ---
HEAD WITHOUT CONTRAST (CT) CLINICAL HISTORY: 46 years-old Female with right facial numbness, right arm numbness. TECHNIQUE: Multiple axial CT images of the head were obtained without contrast. A dose lowering technique was utilized adhering to the principles of ALARA. CT DOSE: 788.63 mGycm COMPARISON: Head CT 08/29/2014. FINDINGS: No acute intracranial hemorrhage, midline shift, mass, large territorial ischemia or abnormal extra-axial collection. Ill-defined area of low attenuation within the region of the left lentiform nucleus, 5 mm is unchanged suggesting prominent perivascular space The calvarium is intact. The paranasal sinuses, mastoid air cells, and middle ear cavities are clear. There is mild leftward deviation of the nasal septum. IMPRESSION: No acute intracranial abnormality. The above report was generated using voice recognition software. It may contain grammatical, syntax or spelling errors. Electronically signed by: Tino Che M.D. 10/31/2016 11:58 AM Dictated Date/Time: 10/31/2016 11:55 AM
[2016-10-31 12:25] LABS: PREG INTERNAL NEGATIVE QC NEG CLEAR BACKGROUND; PREG INTERNAL POSITIVE QC POS CONTROL LINE
[2016-10-31 12:42] VITALS: O2SAT 97; Ht 162.6 cm; Wt 132.8 kg
--- NOTE | 2016-10-31 12:43 | EMERGENCY ROOM VISIT NOTE ---
History Report prepared by Tavon: Adamaris Curran Under the Supervision of: Dr. Isaac Mims D.O. First contact with patient: 11:45 Chief Complaint: NEURO SYMPTOMS Stated Complaint: FACILA NUMBNESS Nursing Triage Summary: Patient arrived via EMS. Pt reports facial numbness on the right side including her ear and right arm numbness since yesterday during physical therapy. Pt report she is getting PT for shoulder stress and the therapist moved her a certain way causing numbness in her right face and arm, numbness did not get better overnight. Pt c/o mid back of head pain last night, denies head pain at this time. Pt feels like the right eye is not focusing properly. Hx of possible TIA, some Dr's said TIA, some said it was not a TIA. History of Present Illness The patient is a 46 year old female who presents to the Emergency Room via EMS with complaints of worsening right sided numbness starting yesterday. About 2 weeks ago, she started having hypertension which was attributed to increased stress at work. Yesterday, the patient started having a headache at the base of her skull. She has applied ice without relief. The patient has been taking Tylenol and Ibuprofen for the headache with some relief. While her neck was being manipulated at physical therapy, she had a sudden onset of right sided facial numbness. Since then, she has been having worsening numbness. She is now also having numbness and weakness in her right arm. She currently complains of a mild headache. She was referred to the Emergency Room by her PCP. The patient has a history of similar symptoms occurring in 2013 where she had an MRI which was negative for stroke. She also had a carotid Doppler with negative results. She has a history of neck surgery. She was recently started on Cymbalta for a history of bipolar disorder but denies any other new medications. Her aunt had a stroke at 53 years old. She denies recent illnesses, cough, fevers, heart palpitations, chest pain, shortness of breath, nausea, vomiting, numbness/ weakness in lower extremities, or any other complaints. Source of History: patient Onset: yesterday Position: other (right sided) Quality: numbness Timing: worsening Associated Symptoms: + headache, + weakness (right arm), No fevers, No cough , No chest pain, No SOB, No nausea, No vomiting Review of Systems See HPI for pertinent positives & negatives. A total of 10 systems reviewed and were otherwise negative. Past Medical & Surgical Medical Problems: (1) Bipolar disorder (2) Facial paresthesia (3) Hypertensive disorder, systemic arterial (4) Hypertriglyceridemia (5) Right arm weakness Surgical Problems: (1) Hx of cholecystectomy Family History Cancer Diabetes mellitus Heart disease Hypertension Kidney disease Kidney stones Stroke Social History Smoking Status: Never Smoker Marital Status: Housing Status: lives with family Occupation Status: employed Current/Historical Medications Scheduled Ascorbic Acid (Ascorbic Acid), 500 MG PO QAM Aspirin (Aspirin), 81 MG PO DAILY B-Complex Vitamins (Vitamin B Complex), 1 TAB PO QAM Cholecalciferol (Vitamin D), 1 TABS PO QAM Duloxetine Hcl (Cymbalta), 60 MG PO DAILY Ferrous Sulfate (Iron (Ferrous Sulfate)), 65 MG PO DAILY Garlic (Garlic), 1 TAB PO DAILY Multivitamin (Multivitamin), 1 TAB PO QAM Scheduled PRN Hydroxyzine HCl (Hydroxyzine HCl), 10 MG PO Q8 PRN for Anxiety Miscellaneous Medications Etonogestrel (Nexplanon), 68 MG SC Allergies Coded Allergies: Latex1 -Allergic Contact Dermititis (Verified Allergy, Unknown, RASH, ) Venlafaxine (Verified Adverse Reaction, Unknown, high blood pressure, ) Physical Exam Vital Signs Date Time Temp Pulse Resp B/P (MAP) Pulse Ox O2 Delivery O2 Flow Rate FiO2 10/31/16 13:14 88 16 164/99 94 Room Air 10/31/16 12:42 97 Room Air 10/31/16 11:41 97 Room Air 10/31/16 11:28 76 14 162/97 97 Room Air 10/31/16 11:10 85 22 188/99 94 Room Air 10/31/16 10:44 80 10/31/16 10:35 87 20 164/107 96 Room Air 10/31/16 10:35 96 Room Air Physical Exam GENERAL: Patient is awake, alert, and in no acute distress. Patient is resting comfortably and showing no signs of anxiety EYES: The conjunctivae are clear. The pupils are round and reactive. EARS, NOSE, MOUTH AND THROAT: The nose is without any evidence of any deformity. Mucous membranes are moist tongue is midline NECK: The neck is nontender and supple. RESPIRATORY: Normal respiratory effort is noted there is no evidence of wheezing rhonchi or rales CARDIOVASCULAR: Regular rate and rhythm noted there no murmurs rubs or gallops normal S1 normal S2 GASTROINTESTINAL: The abdomen is soft. Bowel sounds are present in all quadrants. Abdomen is nontender MUSCULOSKELETAL/EXTREMITIES: There is no evidence of gross deformity full range of motion is noted in the hips and shoulders SKIN: There is no obvious evidence of any rash. There are no petechiae, pallor or cyanosis noted. NEUROLOGIC: Patient is awake alert and oriented x3, strength is symmetric in bilateral lower extremities, vegetable sorter strength is diminished in the right upper extremity compared to the left, no drift in the right upper extremity, no droop appreciated. Medical Decision & Procedures ER Provider Diagnostic Interpretation: CT results as stated below per my review and radiologist interpretation. HEAD WITHOUT CONTRAST (CT) CLINICAL HISTORY: 46 years-old Female with right facial numbness, right arm numbness. TECHNIQUE: Multiple axial CT images of the head were obtained without contrast. A dose lowering technique was utilized adhering to the principles of ALARA. CT DOSE: 788.63 mGycm COMPARISON: Head CT 08/29/2014. FINDINGS: No acute intracranial hemorrhage, midline shift, mass, large territorial ischemia or abnormal extra-axial collection. Ill-defined area of low attenuation within the region of the left lentiform nucleus, 5 mm is unchanged suggesting prominent perivascular space The calvarium is intact. The paranasal sinuses, mastoid air cells, and middle ear cavities are clear. There is mild leftward deviation of the nasal septum. IMPRESSION: No acute intracranial abnormality. The above report was generated using voice recognition software. It may contain grammatical, syntax or spelling errors. Electronically signed by: Tino Che M.D. 10/31/2016 11:58 AM Dictated Date/Time: 10/31/2016 11:55 AM Laboratory Results Test 10/31/16 10:40 Prothrombin Time 10.0 SECONDS (9.0-12.0) Prothromb Time International Ratio 0.9 (0.9-1.1) Activated Partial Thromboplast Time 30.3 SECONDS (21.0-31.0) Partial Thromboplastin Ratio 1.2 Estimated Average Glucose 137 mg/dl Hemoglobin A1c 6.4 % (4.5-5.6) Total Bilirubin 0.3 mg/dl (0.2-1) Aspartate Amino Transf (AST/SGOT) 20 U/L (15-37) Alanine Aminotransferase (ALT/SGPT) 37 U/L (12-78) Alkaline Phosphatase 89 U/L (45-117) Troponin I < 0.015 ng/ml (0-0.045) Total Protein 7.5 gm/dl (6.4-8.2) Albumin 3.5 gm/dl (3.4-5.0) Globulin 4.0 gm/dl (2.5-4.0) Albumin/Globulin Ratio 0.9 (0.9-2) Human Chorionic Gonadotropin, Qual NEG (NEG) Laboratory results per my review. Medications Administered Medications (Trade) Dose Ordered Sig/Mamadou Route Start Time Stop Time Status Last Admin Dose Admin Acetaminophen (Tylenol Tab) 650 mg Q4H PRN PO 10/31/16 12:45 11/30/16 12:44 11/01/16 09:35 650 MG ECG Indication: weakness, other (numbness) Rate (beats per minute): 79 Rhythm: normal sinus Findings: no ectopy, other (No acute ST segment abnormalities) Comparison ECG Date: May 22, 2016 Change: no significant change ED Course 1145: The patient was evaluated in room B03B. A complete history and physical examination were performed. 1208: Upon reevaluation, the patient is resting comfortably. I discussed results and treatment plan with her. She verbalizes agreement and understanding. [facility] The patient will be evaluated for further management and care. Medical Decision Prior records/ancillary studies reviewed and summarized above. Nursing notes reviewed. Differential diagnosis: Etiologies such as metabolic, infection, hypo/hyperglycemia, electrolyte abnormalities, cardiac sources, intracerebral event, toxicologic, neurologic, as well as others were entertained. The patient is a 46-year-old female who presented to the emergency department for an evaluation of right facial numbness and right upper extremity weakness. The patient's symptoms began over the last 24 hours. She presented to her primary care physician's office and was sent to the emergency department for further evaluation. On physical exam the patient did not have any facial droop or subjective numbness over the face. The patient was found have decreased vegetable sorter strength in the right upper extremity. I discussed the patient's laboratory radiographic studies with her. She had a similar episode some years ago which resulted in a workup including MRI the brain. I was very concerned about the patient's presentation today so I discussed her case with the [facility]. She is agreed to evaluate the patient in the emergency department for further management and disposition. Medication Reconcilliation Current Medication List: was personally reviewed by me Blood Pressure Screening Patient's blood pressure: Elevated blood pressure Blood pressure disposition: Elevated BP felt to be situational Consults Time Called: 1206 Consulting Physician[facility] Returned Call: [address] Cooper of the [facility] Service. Impression Primary Impression: JAILYN borden Scribe Attestation The scribe's documentation has been prepared under my direction and personally reviewed by me in its entirety. I confirm that the note above accurately reflects all work, treatment, procedures, and medical decision making performed by me. Departure Information Dispostion Being Evaluated By Hospitalist Referrals Myrna Moore M.D. (PCP) Patient Instructions My [facility]
[2016-10-31] MEDS ORDERED: hydrOXYzine HCL 10 MG TAB PO PRN (12:45)
[2016-10-31] MEDS ORDERED: HydrALAZINE HCL 20 MG/ML VIAL IV. PRN (12:45)
[2016-10-31] MEDS ORDERED: ONDANSETRON INJ 2 MG/ML 2 ML VIAL IV PRN (12:45)
[2016-10-31] MEDS ORDERED: PHARMACIST DISCHARGE MED REC CONSULT PRN (12:45)
[2016-10-31] MEDS ORDERED: POLYETHYLENE (MIRALAX) 17 GM PACK PO PRN (12:45)
--- NOTE | 2016-10-31 13:41 | DIAGNOSTIC IMAGING REPORT ---
CHEST ONE VIEW PORTABLE CLINICAL HISTORY: Right upper extremity weakness. Facial numbness. COMPARISON STUDY: No previous studies for comparison. FINDINGS: The cardiac and mediastinal contours are normal. There is no evidence of focal pulmonary consolidation. There is no evidence of failure. No pleural effusions are visualized.[ There are postsurgical changes within the lower cervical spine. IMPRESSION: No active disease in the chest. Electronically signed by: Jovon Leiva M.D. 10/31/2016 1:40 PM Dictated Date/Time: 10/31/2016 1:40 PM
[2016-10-31] MEDS ORDERED: IV FLUIDS COMPLETED PRN (13:45)
[2016-10-31 13:52] LABS: ESTIMATED AVERAGE GLUCOSE 137 mg/dl; HA1C FLAG Normal (Normal)
--- NOTE | 2016-10-31 14:09 | DIAGNOSTIC IMAGING REPORT ---
CAROTID DOPPLER NECK ART HISTORY: Mental status change Stroke COMPARISON: 04/23/2011 TECHNIQUE: Real-time, grayscale, and color Doppler sonography of the carotid arteries was performed. Imaging reviewed in the transverse and longitudinal planes. All measurements were calculated based on NASCET criteria. FINDINGS: Antegrade flow is seen in the bilateral vertebral arteries. The brachial pressures are hemodynamically similar. Mild plaque formation bilaterally The peak systolic velocity within the right ICA is 48. The right systolic ratio is 0.7. The peak systolic velocity within the left ICA is 51. The left systolic ratio is 0.5. IMPRESSION: No hemodynamically significant stenosis seen within the carotid arteries. No change from the prior study. The above report was generated using voice recognition software. It may contain grammatical, syntax or spelling errors. Electronically signed by: Henry Jeronimo M.D. 10/31/2016 2:08 PM Dictated Date/Time: 10/31/2016 2:07 PM
--- NOTE | 2016-10-31 15:37 | Medical Student: [facility] ---
Med Student History & Physical Date & Time of Service: Oct 31, 2016 at 13:49 Chief Complaint: Facial Numbness Primary Care Physician: Leena Carlson D.O. History of Present Illness Source: patient Mildly anxious 46yo female with history of CVA (2012), poorly controlled HTN, cervical diskectomy with fusion (2014), RAFA on CPAP, anxiety, and bipolar disorder presenting with continuos headaches over past month and new onset RT facial numbness and RT arm weakness beginning 10/30pm. Patient reports SENIOR began with increased stress at work one month ago located largely in the occipital region with intermittent radiation to RT frontal. She describes it as constant "pulling" with sudden increases in intensity to a "dull ache" with average rating of 5-6/10. She denies any temporal pattern, identifiable triggers, increased sensitivity to light/sound, or simultanous N/V. Yesterday, 10/30, patient was at physical therapy when her SENIOR increased, during a neck manipulation procedure on RT side, patient reports sudden, persistent facial numbness encompassing entire RT side. Later that evening, she developed a "crushing" SENIOR (8 out of 10) and new onset of RT arm weakness without pain, these symptoms improved with Tylenol, ibuprofen, fluid intake, and a hot shower. Patient saw her PCP this am and was found to have a BP of 211/110 and was sent to the ED for evaluation. She reports that these symptoms are very similar in nature to the symptoms she developed in 2012 when she was told she has a small stroke ([place] [employer]) although she was told in [place] it was not a stroke. Patient states facial numbness has not changed since onset, she feels like her muscles are "lazy" with a small lag compared to LT side that is not visually obvious. She reports that her vision is somewhat blurry with small details/ reading, in that it takes an extra second for her RT eye to focus - once it does the blurriness resolves. She is able to move all the muscles in her face and arm, but they feel "lazy" and "wrong". Patient reports that although she has chronic neuropathy in her hands and feet from the last event in 2012, she has increased numbness in her RT hand. Denies any nausea, vomiting, fever, chills, night sweats, chest pain, tachycardia, SOB, tachypnea, fatigue, weakness (other than RT arm), changes in urinary habits, diarrhea, constipation, darkened/blood in stools, hearing changes, visual changes (other than above), abnormal smells, slurring of speech , and atypical word finding difficulty. She says that she is outside often, but denies any tick bites Past Medical/Surgical History PMH CVA in 2012 HTN Peripheral neuropathy in hands and feet bilaterally Anxiety Bipolar disorder RAFA with CPAP Iron deficiency anemia secondary to menorrhagia - controlled with Nexplanon Mesenteric adenitis Terminal ileitis Home Medications: Amytriptylline 20mg - neuropathic pain, sleep aid Duloxetine (Cymbalta) ASA 81mg Supplements: garlic, iron, vitamins D3, C, + B-complex PSH Umbilical hernia as child Cholecystectomy 1991 Cervical discectomy with fusion 2004 Colonoscopy with biopsy - inflammation, benign biopsy Breast biopsy 10/2016 Family History Father: essential tremor, HTN, diabetes, metastatic colon cancer Mother: Alzheimer, HTN Sisters x2: bipolar disorder Brothers x2: HTN Social History Lives with [facility] and, on the weekends, her son 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 Smoking Status: Never Smoker Smokeless Tobacco Use: No Alcohol Use: occasionally (3 drinks/week - wine or beer) Drug Use: none Marital Status: in relationship (engaged) 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) Allergies Coded Allergies: Latex1 -Allergic Contact Dermititis (Verified Allergy, Unknown, RASH, ) Venlafaxine (Verified Adverse Reaction, Unknown, high blood pressure, ) Medications Ascorbic Acid (Ascorbic Acid), 500 MG PO QAM Aspirin (Aspirin), 81 MG PO DAILY B-Complex Vitamins (Vitamin B Complex), 1 TAB PO QAM Cholecalciferol (Vitamin D), 1 TABS PO QAM Duloxetine Hcl (Cymbalta), 60 MG PO DAILY Etonogestrel (Nexplanon), 68 MG SC Ferrous Sulfate (Iron (Ferrous Sulfate)), 65 MG PO DAILY Garlic (Garlic), 1 TAB PO DAILY Hydroxyzine HCl (Hydroxyzine HCl), 10 MG PO Q8 PRN for Anxiety Multivitamin (Multivitamin), 1 TAB PO QAM Review of Systems Constitutional: No fever, No chills, No sweats, No weight loss, No weakness, No fatigue Eyes: + problem reported (Delayed RT eye focusing compared to normal), No worsening of vision, No diplopia ENT: No hearing loss, No tinnitus, No problem reported Respiratory: No shortness of breath Cardiovascular: No chest pain, No edema, No palpitations Abdomen: No pain, No nausea, No vomiting, No diarrhea, No constipation, No GI bleeding Musculoskeletal: + muscle pain (RT neck and shoulder) Genitourinary - Female: No problem reported Neurologic: + weakness (RT arm), + numbness/tingling (Chronic hands and feet - new worse in RT hand, facial numbness ), No balance problems Psychiatric: No problem reported Endocrine: No fatigue, No excessive urination Hematologic / Lymphatic: No swollen lymph nodes, No night sweats Physical Exam Vital Signs (24 Hours) Date Time Temp Pulse Resp B/P (MAP) Pulse Ox O2 Delivery O2 Flow Rate FiO2 10/31/16 13:14 88 16 164/99 94 Room Air 10/31/16 12:42 97 Room Air 10/31/16 11:41 97 Room Air 10/31/16 11:28 76 14 162/97 97 Room Air 10/31/16 11:10 85 22 188/99 94 Room Air 10/31/16 10:44 80 10/31/16 10:35 87 20 164/107 96 Room Air 10/31/16 10:35 96 Room Air General Appearance: no apparent distress, + obese Head: normocephalic, atraumatic Eyes: normal inspection, PERRL, EOMI, sclerae normal, funduscopic exam normal ENT: hearing grossly normal, pharynx normal Neck: supple, no adenopathy, no JVD, no carotid bruits, trachea midline Respiratory/Chest: chest non-tender, lungs clear, normal breath sounds, no respiratory distress, no accessory muscle use Cardiovascular: regular rate, rhythm, no edema, no gallop, no JVD, no murmur, normal peripheral pulses Abdomen/GI: normal bowel sounds, non tender, soft, no organomegaly, no pulsatile mass Back: normal inspection Extremities/Musculoskelatal: normal inspection, no calf tenderness, normal capillary refill, no pedal edema, normal range of motion, + pertinent finding ( Mild tenderness to palpation RT neck to shoulder) Neurologic/Psych: 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 tested, alert, normal mood/affect, normal reflexes, oriented x 3, + motor weakness (Mild initial RT director of business continuity strenght - improved with duration to equal LT director of business continuity strength), + sensory deficit (RT CN V2, V3, C5, C8 regions) Skin: normal color, warm/dry, no rash, + pertinent finding (Mild light brown discoloration in band across back at level of where bra would rest) Lymphatic: no adenopathy Diagnostics Laboratory Results Results Past 24 Hours Test 10/31/16 10:40 Range/Units White Blood Count 9.03 4.8-10.8 K/uL Red Blood Count 4.75 4.2-5.4 M/uL Hemoglobin 14.7 12.0-16.0 g/dL Hematocrit 41.5 37-47 % Mean Corpuscular Volume 87.4 80-100 fL Mean Corpuscular Hemoglobin 30.9 25-34 pg Mean Corpuscular Hemoglobin Concent 35.4 32-36 g/dl RDW Standard Deviation 41.1 36.4-46.3 fL RDW Coefficient of Variation 12.8 11.5-14.5 % Platelet Count 349 130-400 K/uL Mean Platelet Volume 9.7 7.4-10.4 fL Prothrombin Time 10.0 9.0-12.0 SECONDS Prothromb Time International Ratio 0.9 0.9-1.1 Activated Partial Thromboplast Time 30.3 21.0-31.0 SECONDS Partial Thromboplastin Ratio 1.2 Sodium Level 140 136-145 mmol/L Potassium Level 3.6 3.5-5.1 mmol/L Chloride Level 105 98-107 mmol/L Carbon Dioxide Level 26 21-32 mmol/L Anion Gap 9.0 3-11 mmol/L Blood Urea Nitrogen 7 7-18 mg/dl Creatinine 0.76 0.60-1.20 mg/dl Est Creatinine Clear Calc Drug Dose 125.5 ml/min Estimated GFR () 108.3 Estimated GFR (Non- 93.4 BUN/Creatinine Ratio 9.0 10-20 Random Glucose 107 70-99 mg/dl Calcium Level 8.9 8.5-10.1 mg/dl Total Bilirubin 0.3 0.2-1 mg/dl Aspartate Amino Transf (AST/SGOT) 20 15-37 U/L Alanine Aminotransferase (ALT/SGPT) 37 12-78 U/L Alkaline Phosphatase 89 45-117 U/L Troponin I < 0.015 0-0.045 ng/ml Total Protein 7.5 6.4-8.2 gm/dl Albumin 3.5 3.4-5.0 gm/dl Globulin 4.0 2.5-4.0 gm/dl Albumin/Globulin Ratio 0.9 0.9-2 Human Chorionic Gonadotropin, Qual NEG NEG Diagnostic Radiology CHEST X-RAY IMPRESSION: No active disease in the chest. HEAD CT COMPARISON: Head CT 08/29/2014. FINDINGS: No acute intracranial hemorrhage, midline shift, mass, large territorial ischemia or abnormal extra-axial collection. Ill-defined area of low attenuation within the region of the left lentiform nucleus, 5 mm is unchanged suggesting prominent perivascular space The calvarium is intact. The paranasal sinuses, mastoid air cells, and middle ear cavities are clear. There is mild leftward deviation of the nasal septum. IMPRESSION: No acute intracranial abnormality. CXR normal Normal EKG Impression Assessment and Plan Patient is a 46yo female with history of CVA (2012), HTN, cervical diskectomy with fusion (2014), chronic neuropathic pain in bilateral hands + feet, bipolar disorder, and anxiety presenting to the ED with new onset RT arm weakness and RT facial numbness as well as one month duration of tension headaches secondary to new ischemic stroke v. HTN emergency v. exacerbated peripheral neuropathy from cervical manipulation by physical therapist. 1. RT facial numbness and RT arm weakness: decreased sensation to light touch on RT face and arm, fluctuant RT director of business continuity strength that initially is weak but gains strength to match LT - Stroke rule out - history of minor CVA, sudden unilateral sensation/motor changes - Head CT shows no acute changes from previous and no active hemorrhage - MRI and MRA of brain - new ischemic or vascular change - Carotid artery duplex to evaluate for possible obstruction - Maintain BP above 160/90 to prevent induced ischemia - Continue ASA 81mg for anti-platelet action - patient is not a candidate for tPA given duration of symptoms +24hrs - Consult with neurology for evaluation - Echocardiogram - r/o PFO, thrombus - Telemetry to monitor for afib - Radiculopathy - symptoms began with manipulation RT cervical area, history of discectomy at C5 with fusion and chronic peripheral neuropathy in hands/feet bilaterally - Continue home amitriptyline, duloxetine - Tylenol PRN for pain 2. Hypertension: 188/99 - Hydralazine 10mg PRN for control - Maintain above 160/90 to prevent induced ischemia until new CVA ruled out - fluids IV to bolster PRN - With r/o begin Lisinopril 10mg 3. Obstructive sleep apnea with CPAP - Continue home CPAP Prophylaxis - DVT: Lovenox subQ, SCDs Level of Care Telemetry Advanced Directives Existing Living Will: No Existing Power of Supervisor Modern Languages: No Resuscitation Status FULL RESUSCITATION DVT Prophylaxis enoxaparin (Lovenox) SQ, SCDs Social Service Consult None Apply Note Total Time: Critical Care 30 - 74 minutes
--- NOTE | 2016-10-31 16:24 | DIAGNOSTIC IMAGING REPORT ---
MRA HEAD WITHOUT CONTRAST HISTORY: Mental status change Stroke - Attention to [place] TECHNIQUE: 3-D [id number] MRA of the brain was performed without contrast. COMPARISON STUDY: None. FINDINGS: Visualized intracranial internal carotid arteries, distal vertebral arteries, and basilar artery are widely patent. There is no significant stenosis, occlusion, or aneurysm seen within the bilateral ACAs, MCAs, or manager maintenance. IMPRESSION: No significant stenosis, occlusion, or aneurysm within the [place]. The above report was generated using voice recognition software. It may contain grammatical, syntax or spelling errors. Electronically signed by: Henry Jeronimo M.D. 10/31/2016 4:23 PM Dictated Date/Time: 10/31/2016 4:20 PM
[2016-10-31] MEDS ORDERED: GADAVIST IV PRN (16:30)
--- NOTE | 2016-10-31 16:38 | DIAGNOSTIC IMAGING REPORT ---
BRAIN COMBO CLINICAL HISTORY: Stroke mental status change COMPARISON STUDY: No previous studies for comparison. TECHNIQUE: Utilizing a 1.5 Emily magnet and dedicated coil, multiplanar, multiecho imaging of the brain was performed pre and postcontrast administration. IV administration of 13 mL of Gadavist contrast was uneventful. FINDINGS: Diffusion images are negative for an acute ischemic event. Signal characteristics of the cerebellar as well as cerebral hemispheres are unremarkable. The ventricular system is midline. Sella and parasellar region is within normal limits. Internal artery canals are symmetric. Postcontrast images are considered negative for an enhancing lesion. IMPRESSION: Normal study. The above report was generated using voice recognition software. It may contain grammatical, syntax or spelling errors. Electronically signed by: Henry Jeronimo M.D. 10/31/2016 4:37 PM Dictated Date/Time: 10/31/2016 4:34 PM
[2016-10-31 16:45] VITALS: BP 173/109; PULSE 88; TEMP 37.2; O2SAT 95
[2016-10-31] MEDS ORDERED: ENOXAPARIN 40 MG/0.4 ML SYR SC SCH (17:00)
[2016-10-31] MEDS: ACETAMINOPHEN 325 MG TAB PO PRN (17:31)
[2016-10-31 19:42] VITALS: BP 176/98; PULSE 89; TEMP 37; O2SAT 94
[2016-10-31 20:00] VITALS: O2SAT 94
[2016-10-31] MEDS ORDERED: LISINOPRIL 10 MG TAB PO ONE (20:14)
[2016-10-31] MEDS ORDERED: CYCLOBENZAPRINE HCL 5 MG TAB PO PRN (20:15)
[2016-10-31] MEDS ORDERED: AMITRIPTYLINE HCL 10 MG TAB PO SCH (21:00)
--- NOTE | 2016-10-31 22:07 | History and Physical ---
History & Physical Date & Time of Service: Oct 31, 2016 at 12:17 Chief Complaint: Facial Numbness Primary Care Physician: Leena Carlson D.O. History of Present Illness Source: patient Pt is a 46 yo female with a h/o bipolar d/o, anxiety and depression, HTN, here with right facial numbness and RUE weakness since yesterday. She also has had headaches for the last month. She has had a lot of stress at work and having the headaches since then. They are located posteriorly and 6/10. Yesterday her SENIOR worsened a bit during PT and PT started manipulating her neck and she felt paresthesias spreading over the entire rt side of her face. She then went home and her headache worsened a lot and then her right arm started feeling weak, felt rubbery. She took tylenol, ibuprofen, drank caffeine, took a hot shower and things settled down a bit. When she woke up this AM, the RUE weakness was back but the facial paresthesias were a bit better. She is able to move the arm but feels like there is a delay in being able to move the arm compared to normal. Went to her PCP today and BP was 211/110 in the office and they sent her here. She denies any N/V, fevers/chills, speaking difficulties, no CP or SOB, no heart palpitations. No loss of control of bowel/bladder. She has a chronic h/o bilateral hands and feet numbness since 2009 when she had a previous stroke workup with very similar symptoms with headache and MRI showed a probable left pontine CVA. She went [place] [facility] [place] and as per pt report she was told she did not have a CVA. She did have cervical myelopathy and a subsequent ACDF multilevel in 2014 here. She will be admitted here for a CVA workup. Past Medical/Surgical History PMH: Hypertension-not on meds currently but has been in the past Hypertriglyceridemia Arthritis Anxiety and Depression Bipolar disorder Obstructive Sleep Apnea-on CPAP Terminal ileitis Gastritis H/o Fe-def anemia from menorrhagia-now resolved with Nexplanon PSH: Right breast biopsy-benign Anterior cervical discectomy and fusion C3-4,5-6,6-7-2014 Cholecystectomy Umbilical hernia repair Family History Father-Essential tremor, DMII, metastatic Colon CA () Mother-Alzheimer's, HTN Sisters both with bipolar d/o Brothers both with HTN Social History Smoking Status: Never Smoker Alcohol Use: occasionally (3 beers or wine/week) Drug Use: none Marital Status: in relationship Housing status: lives with significant other (Kahlil' and son from college on weekends) 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) Multi-Drug Resistant Organisms History of MDRO: No Allergies Coded Allergies: Latex1 -Allergic Contact Dermititis (Verified Allergy, Unknown, RASH, ) Venlafaxine (Verified Adverse Reaction, Unknown, high blood pressure, ) Home Medications Scheduled Ascorbic Acid (Ascorbic Acid), 500 MG PO QAM Aspirin (Aspirin), 81 MG PO DAILY B-Complex Vitamins (Vitamin B Complex), 1 TAB PO QAM Cholecalciferol (Vitamin D), 1 TABS PO QAM Duloxetine Hcl (Cymbalta), 60 MG PO DAILY Ferrous Sulfate (Iron (Ferrous Sulfate)), 65 MG PO DAILY Garlic (Garlic), 1 TAB PO DAILY Multivitamin (Multivitamin), 1 TAB PO QAM Scheduled PRN Hydroxyzine HCl (Hydroxyzine HCl), 10 MG PO Q8 PRN for Anxiety Miscellaneous Medications Etonogestrel (Nexplanon), 68 MG SC Review of Systems Constitutional: No fever, No chills Eyes: No problem reported ENT: No problem reported Respiratory: No shortness of breath Cardiovascular: No chest pain Abdomen: No pain, No nausea, No vomiting Musculoskeletal: + problem reported (right shoulder) Genitourinary - Female: No problem reported Neurologic: + weakness (as per HPI), + numbness/tingling Psychiatric: + depression symptoms, + anxiety Endocrine: No problem reported Hematologic / Lymphatic: No problem reported Integumentary: No problem reported Allergic / Immunologic: No problem reported Physical Exam Vital Signs Date Time Temp Pulse Resp B/P (MAP) Pulse Ox O2 Delivery O2 Flow Rate FiO2 10/31/16 11:41 97 Room Air 10/31/16 11:28 76 14 162/97 97 Room Air 10/31/16 11:10 85 22 188/99 94 Room Air 10/31/16 10:44 80 10/31/16 10:35 87 20 164/107 96 Room Air 10/31/16 10:35 96 Room Air General Appearance: WD/WN, no apparent distress, + obese (morbidly) Head: normocephalic, atraumatic Eyes: normal inspection, PERRL, EOMI, sclerae normal ENT: hearing grossly normal, pharynx normal Neck: supple, no adenopathy, thyroid normal, no JVD, trachea midline Respiratory/Chest: lungs clear, normal breath sounds, no respiratory distress, no accessory muscle use Cardiovascular: regular rate, rhythm, no edema, no gallop, no murmur, normal peripheral pulses Abdomen/GI: normal bowel sounds, non tender, soft (and morbidly obese) Back: normal inspection Extremities/Musculoskelatal: normal inspection, no calf tenderness, no pedal edema, normal range of motion Neurologic/Psych: 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 nml as tested (except slightly diminished sensation to lt touch in Right V2 distribution; funduscopic exam not performed) , no motor/sensory deficits (except difficult to obtaine reflexes throughout due to tension, motor strength 5/5 throughout upper and lower extremities, sensation intact throughout upper and lower extremities except slightly decreased sensation to light touch over right deltoid), alert, normal mood/ affect, oriented x 3 Skin: normal color, warm/dry, no rash Diagnostics Laboratory Results Results Past 24 Hours Test 10/31/16 10:40 10/31/16 11:59 Range/Units White Blood Count 9.03 4.8-10.8 K/uL Red Blood Count 4.75 4.2-5.4 M/uL Hemoglobin 14.7 12.0-16.0 g/dL Hematocrit 41.5 37-47 % Mean Corpuscular Volume 87.4 80-100 fL Mean Corpuscular Hemoglobin 30.9 25-34 pg Mean Corpuscular Hemoglobin Concent 35.4 32-36 g/dl RDW Standard Deviation 41.1 36.4-46.3 fL RDW Coefficient of Variation 12.8 11.5-14.5 % Platelet Count 349 130-400 K/uL Mean Platelet Volume 9.7 7.4-10.4 fL Prothrombin Time 10.0 9.0-12.0 SECONDS Prothromb Time International Ratio 0.9 0.9-1.1 Activated Partial Thromboplast Time 30.3 21.0-31.0 SECONDS Partial Thromboplastin Ratio 1.2 Sodium Level 140 136-145 mmol/L Potassium Level 3.6 3.5-5.1 mmol/L Chloride Level 105 98-107 mmol/L Carbon Dioxide Level 26 21-32 mmol/L Anion Gap 9.0 3-11 mmol/L Blood Urea Nitrogen 7 7-18 mg/dl Creatinine 0.76 0.60-1.20 mg/dl Est Creatinine Clear Calc Drug Dose 125.5 ml/min Estimated GFR () 108.3 Estimated GFR (Non- 93.4 BUN/Creatinine Ratio 9.0 10-20 Random Glucose 107 70-99 mg/dl Calcium Level 8.9 8.5-10.1 mg/dl Total Bilirubin 0.3 0.2-1 mg/dl Aspartate Amino Transf (AST/SGOT) 20 15-37 U/L Alanine Aminotransferase (ALT/SGPT) 37 12-78 U/L Alkaline Phosphatase 89 45-117 U/L Total Protein 7.5 6.4-8.2 gm/dl Albumin 3.5 3.4-5.0 gm/dl Globulin 4.0 2.5-4.0 gm/dl Albumin/Globulin Ratio 0.9 0.9-2 Diagnostic Radiology HEAD WITHOUT CONTRAST (CT) CLINICAL HISTORY: 46 years-old Female with right facial numbness, right arm numbness. TECHNIQUE: Multiple axial CT images of the head were obtained without contrast. A dose lowering technique was utilized adhering to the principles of ALARA. CT DOSE: 788.63 mGycm COMPARISON: Head CT 08/29/2014. FINDINGS: No acute intracranial hemorrhage, midline shift, mass, large territorial ischemia or abnormal extra-axial collection. Ill-defined area of low attenuation within the region of the left lentiform nucleus, 5 mm is unchanged suggesting prominent perivascular space The calvarium is intact. The paranasal sinuses, mastoid air cells, and middle ear cavities are clear. There is mild leftward deviation of the nasal septum. IMPRESSION: No acute intracranial abnormality. Chest xray- negative Normal EKG Impression Assessment and Plan This is a 46 yo female with a h/o obesity, Hypertension (not on meds), Hypertriglyceridemia, Arthritis, Anxiety and Depression, Bipolar d/o, Sleep Apnea on CPAP, and Terminal ileitis, who presents to the ER with right facial paresthesias and RUE weakness x 1 day that came on while getting her right shoulder and neck worked on during a PT session for her tension headaches for the last month. She was quite hypertensive in PCP's office and then here in ER. She has a chronic h/o bilateral hands and feet numbness since 2009 when she had a previous stroke workup with very similar symptoms with headache and MRI showed a probable left pontine CVA. She went to [facility] [place] at that time and as per pt report she was told she did not have a CVA. She did have cervical myelopathy and a subsequent ACDF multilevel in 2014 here. She will be admitted here for a CVA workup. Right facial paresthesias, RUE weakness, R/o CVA--> initial head CT here shows prominent perivascular space left lentiform nucleus. Previous MRI 2011 and 2012 showed pontine CVA. Has Tension HAs and h/o cervical myelopathy with ACDF. This is most likely related to muscle spasm and cervical radiculopathy. -check brain MRI/MRA, Carotid US, ECHO -Neuro checks -Neuro consultation to help clarify etiology -PT/OT/ST consultations -Tele monitoring for arrhythmias -continue ASA 81mg po qAM -continue muscle relaxer prn, tylenol for neck pain -check A1C, lipid panel, treat with statin if has CVA or elevated lipids -will not bring BP down until CVA ruled out HTN-elevated BPs -once CVA ruled out, would start lisinopril given prediabetes Prediabetes-HgbA1C 6.4% here -weight loss -consider metformin as outpt Bipolar d/o , anxiety and depression-continue home med of CYmbalta Chronic paresthesias, neuropathy-stable -continue home Elavil RAFA on CPAP- stable -can bring CPAP from home or use nocturnal O2 prn Proph-Lovenox Dispo-Full Code to home in 1 day after CVA workup complete Level of Care Telemetry Advanced Directives Existing Advance Directive: No Existing Living Will: No Resuscitation Status FULL RESUSCITATION VTE Prophylaxis Given or contraindicated: Enoxaparin (Lovenox)SQ Additional Copies To Leena Carlson D.O.
[2016-10-31 23:31] VITALS: BP 111/69; PULSE 75; TEMP 36.8; O2SAT 93
[2016-11-01 04:08] VITALS: BP 114/72; PULSE 71; TEMP 36.6; O2SAT 96
[2016-11-01 06:28] LABS: BASO % 0.4 %; BASO ABS # 0.03 K/uL (0-0.2); COMPLETE YES; EOS % 4.6 %; HEMATOCRIT 39.6 % (37-47); IG% 0.4 %; LYMPH % 26.5 %; LYMPH ABS # 2.15 K/uL (1.2-3.4); MEAN CELL VOLUME 87.8 fL (80-100); MEAN CORPUSCULAR HEMOGLOBIN 29.9 pg (25-34); MEAN CORPUSCULAR HGB CONC 34.1 g/dl (32-36); MEAN PLATELET VOLUME 9.3 fL (7.4-10.4); MONO % 7.8 %; NEUT % 60.3 %; PLATELET COUNT 304 K/uL (130-400); RED BLOOD COUNT 4.51 M/uL (4.2-5.4)
[2016-11-01 06:54] LABS: BUN/CREATININE RATIO 12.7 (10-20); CALCIUM 8.2 mg/dl (8.5-10.1); CREATININE 0.63 mg/dl (0.60-1.20); POTASSIUM 3.5 mmol/L (3.5-5.1)
[2016-11-01 06:57] LABS: CHOLESTEROL/HDL RATIO 7.5
[2016-11-01 07:18] VITALS: BP 118/81; PULSE 75; TEMP 36.8; O2SAT 94
[2016-11-01 08:00] VITALS: O2SAT 94
[2016-11-01] MEDS ORDERED: LISINOPRIL 10 MG TAB PO SCH (09:00)
[2016-11-01] MEDS ORDERED: FERROUS SULFATE 325 MG TAB PO SCH (09:00)
[2016-11-01] MEDS ORDERED: MULTIVITAMIN TAB PO SCH (09:00)
[2016-11-01] MEDS ORDERED: CHOLECALCIFEROL 1000 INTER.UNIT TAB PO SCH (09:00)
[2016-11-01] MEDS ORDERED: VITAMIN B COMPLEX TAB PO SCH (09:00)
[2016-11-01] MEDS ORDERED: ASPIRIN 81 MG ECTAB PO SCH (09:00)
[2016-11-01] MEDS ORDERED: DULOXETINE HCL 60 MG CAP PO SCH (09:00)
[2016-11-01] MEDS: ACETAMINOPHEN 325 MG TAB PO PRN (09:35)
--- NOTE | 2016-11-01 09:41 | Neurology Consultation ---
Neurology Consultation Date of Consultation: Nov 01, 2016. Attending Physician: Milagros Cooepr MD Primary Care Physician: Leena Carlson D.OHamzah Reason for Consultation: Consultation for strokelike symptoms History of Present Illness Source: patient, clinic records, hospital records This is a 46-year-old female who presents for concerns of stroke like symptoms. She reports that she's been having new onset headaches for the last month and if slowly been getting worse. She rates her headaches as 7/10. Denies any significant headaches in the past. No history of migraine headaches. Has also been having a lot of neck pain. Was doing physical therapy and yesterday when his goal therapist was manipulating her neck, and occipital area, she reports slowly progressive numbness/tingling over the right side of her face progressing over seconds. Quickly afterwards also progressing over seconds her right arm began to feel rubbery. She reports that after she presented to the hospital for evaluation at around 7 PM her right leg also started to feel numb. She does report having similar symptoms in 2011 when she was initially evaluated for stroke. At that time she had imaging consistent with a subacute left pontine stroke. Due to concerns of possible glioma as a differential, she was seen in [place] for evaluation. It was felt not to be consistent with a glioma. Patient saw Dr. Perez in hospital in clinic in for this issue. Upon reviewing his notes he felt that it was likely her right-sided symptoms secondary to left pontine ischemic stroke. She had a complete stroke workup including a hypercoagulable workup at that time. Hypercoagulable workup included an HUGH, rheumatoid factor, prothrombin gene, factor V, antithrombin III , protein C&S, lupus anticoagulant, and homocystine. Workup was essentially unremarkable with the exception of a weakly positive lupus anticoagulant. She was followed up by hematology as an outpatient. I do not have these notes to review but the patient reports that essentially it was felt to be a false positive. Patient has remained on a low-dose aspirin for secondary stroke prevention since 2011 with no recurrence of new strokelike symptoms. In addition since the patient reports that she's had numbness and tingling in her fingers and toes bilaterally. With this most recent episode she also reports feeling like her vision in her right eye is a little bit blurry or like it has a film over it. No discrete loss of vision. No changes with her speech or swallowing. No changes with her walking otherwise. Patient denies any chest pain or shortness of breath. Patient also has a significant history for having cervical myelopathy and previous decompression and fusion in 2015 at C3 through C7. Patient also has a significant history for B12 deficiency and has been treated by her primary care for this. In terms of the headaches she reports that they've been occurring for about a month of slowly worsening. Rates the pain as a 7/10. Mostly in the occipital region but sometimes wraps around to the frontal region. More on the right side compared to the left. There is a throbbing quality. Occasionally there is a sharp shooting quality over the right occipital area. She denies any light or sound sensitivity. No nausea. No history of migraine headaches. Past therapeutic trials for pain symptoms in general have included gabapentin, nortriptyline, amitriptyline, Cymbalta (I think mostly for mood), and the patient has also been on Topamax mostly for mood. Patient reports that currently she is taking Tylenol as needed for headaches which takes the edge off. She has also used [id number] NSAIDs. MRI of the brain of this admission reported images reviewed by myself and unremarkable. There is a few nonspecific T2 hyperintensities likely consistent with microvascular ischemic changes. 2012 MRI reports were reviewed and noted concern for left small subacute pontine stroke MRA of the head this admission was reviewed and unremarkable Ultrasound of the carotids was also unremarkable his admission In addition the patient reports that she has been noted to have some high blood pressure recently. She reports that it was felt to be may be secondary to stress and has not been treated yet. She reports last time that she saw her primary care physician her systolic blood pressure was in the 150s. Past Medical/Surgical History Medical Problems: (1) Mesenteric adenitis Status: Acute (2) RUE weakness Status: Acute (3) Terminal ileitis Status: Acute Past medical history of bipolar, hypertension, left pontine small ischemic stroke in 2012 with right-sided numbness and weakness, history B12 deficiency, cervical myelopathy status post ACDF levels C3 through C7 in 2015, hypertriglyceridemia, obstructive sleep apnea on CPAP, gastritis, cholecystectomy, umbilical hernia repair, history of bilateral hand and feet numbness/tingling since 2012 Family History Family history is negative for father who had MRI starting at age 42 along with colon cancer at age 39. Patient denies any family history of clotting disorder or strokes. Diabetes, dementia, hypertension, bipolar also run in the family Social History Patient is employed. She is independent in her activities of daily living. No tobacco use. Drinks 3 drinks per week. No illegal drug use. 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) Allergies Coded Allergies: Latex1 -Allergic Contact Dermititis (Verified Allergy, Unknown, RASH, ) Venlafaxine (Verified Adverse Reaction, Unknown, high blood pressure, ) Current Inpatient Medications Current Inpatient Medications Medications (Trade) Dose Ordered Sig/Mamadou Route Start Time Stop Time Status Last Admin Dose Admin Aspirin (Ecotrin Tab) 81 mg QAM PO 11/01/16 09:00 12/01/16 08:59 11/01/16 07:36 81 MG Miscellaneous Information (Pharmacist Discharge Med Rec Consult) 1 ea UD PRN N/A 10/31/16 12:45 11/30/16 12:44 Enoxaparin Sodium (Lovenox Inj) 40 mg DAILY@1700 SC 10/31/16 17:00 11/30/16 16:59 10/31/16 17:31 40 MG Acetaminophen (Tylenol Tab) 650 mg Q4H PRN PO 10/31/16 12:45 11/30/16 12:44 10/31/16 17:31 650 MG Ondansetron HCl (Zofran Inj) 4 mg Q6H PRN IV 10/31/16 12:45 11/30/16 12:44 Polyethylene (Miralax Powder Packet) 17 gm DAILY PRN PO 10/31/16 12:45 11/30/16 12:44 Duloxetine HCl (Cymbalta Cap) 60 mg DAILY PO 11/01/16 09:00 12/01/16 08:59 11/01/16 07:36 60 MG Hydroxyzine HCl (Vistaril Tab) 10 mg Q8 PRN PO 10/31/16 12:45 11/30/16 12:44 Multivitamins (Multivitamin Tab) 1 tab QAM PO 11/01/16 09:00 12/01/16 08:59 11/01/16 07:36 1 TAB Vitamin B Complex (Vitamin B Complex) 1 tab QAM PO 11/01/16 09:00 12/01/16 08:59 11/01/16 07:35 1 TAB Cholecalciferol (Vitamin D Tab) 5,000 inter.unit QAM PO 11/01/16 09:00 12/01/16 08:59 11/01/16 07:37 5,000 INTER.UNIT Ferrous Sulfate (Feosol Tab) 325 mg DAILY PO 11/01/16 09:00 12/01/16 08:59 11/01/16 07:36 325 MG Amitriptyline HCl (Elavil Tab) 20 mg HS PO 10/31/16 21:00 11/30/16 20:59 10/31/16 21:16 20 MG Hydralazine HCl (HydrALAZINE INJ) 10 mg Q8H PRN IV. 10/31/16 12:45 11/30/16 12:44 Miscellaneous (Iv Fluids Completed) 1 ea PRN PRN N/A 10/31/16 13:45 10/31/17 13:44 Gadobutrol (Gadavist) 13 mmol UD PRN IV 10/31/16 16:30 11/04/16 16:29 Cyclobenzaprine HCl (Flexeril Tab) 10 mg TID PRN PO 10/31/16 20:15 11/30/16 20:14 10/31/16 21:15 10 MG Lisinopril (Zestril Tab) 10 mg QAM PO 11/01/16 09:00 12/01/16 08:59 11/01/16 07:37 10 MG Methylprednisolone Sodium Succinate 1000 mg/Dextrose 266 ml @ 250 mls/hr ONE ONCE IV 11/01/16 09:15 11/01/16 10:18 UNV Review of Systems Complete review systems otherwise negative except for the above noted in history of present illness Physical Exam Vital Signs (Past 24 Hrs): Date Time Temp Pulse Resp B/P (MAP) Pulse Ox O2 Delivery O2 Flow Rate FiO2 11/01/16 08:00 94 Room Air 11/01/16 07:18 36.8 75 18 118/81 (93) 94 Room Air 11/01/16 04:08 36.6 71 20 114/72 (86) 96 Room Air 11/01/16 04:00 Room Air 11/01/16 00:00 Room Air 10/31/16 23:31 36.8 75 22 111/69 (83) 93 Room Air 10/31/16 20:00 94 Room Air 10/31/16 19:42 37.0 89 22 176/98 (124) 94 Room Air 10/31/16 16:45 37.2 88 22 173/109 (130) 95 Room Air 10/31/16 14:15 81 21 153/102 94 Room Air 10/31/16 13:14 88 16 164/99 94 Room Air 10/31/16 12:42 97 Room Air 10/31/16 11:41 97 Room Air 10/31/16 11:28 76 14 162/97 97 Room Air 10/31/16 11:10 85 22 188/99 94 Room Air 10/31/16 10:44 80 10/31/16 10:35 87 20 164/107 96 Room Air 10/31/16 10:35 96 Room Air Gen.: Patient is alert and sitting in bed, in no acute distress. HEENT: Normocephalic /atraumatic, no scleral icterus Heart: Regular rate and rhythm Extremities: No gross deformities or rashes noted Neurological examination: Mental status: Patient is alert and oriented x3. Attention and concentration normal for the situation. Good fund of knowledge. Able to give her own history. Speech is fluent without any dysarthria or aphasia noted Cranial nerve: Funduscopic examination was unremarkable. No papilledema. Pupils equally round and reactive to light. Extraocular muscles intact without nystagmus. No facial asymmetry noted. Tongue is midline. Good palatal elevation. Good shoulder shrug bilaterally. Hearing grossly intact to voice. Patient did report decreased facial sensation over the right upper and lower face that did not split midline. Strength: 5/5 both proximal and distally in all extremities. There is no arm drift. Tone is normal. Sensation: Grossly intact to light touch in all extremities, but the patient did report decreased sensation to light touch with the right lower extremity compared to the left Deep tendon reflexes: +1 in bilateral biceps, brachioradialis and patellar. Toes were downgoing to plantar stimulation Coordination: Patient had good finger to nose without dysmetria Station within the bed was normal. Gait within the room appeared stable and normal. Laboratory Results Past 24 Hours: 11/01/16 05:51 Red Blood Count 4.51, Mean Corpuscular Volume 87.8, Mean Corpuscular Hemoglobin 29.9, Mean Corpuscular Hemoglobin Concent 34.1, Mean Platelet Volume 9.3, Neutrophils (%) (Auto) 60.3, Lymphocytes (%) (Auto) 26.5, Monocytes (%) (Auto) 7.8, Eosinophils (%) (Auto) 4.6, Basophils (%) (Auto) 0.4, Neutrophils # (Auto) 4.89, Lymphocytes # (Auto) 2.15, Monocytes # (Auto) 0.63, Eosinophils # (Auto) 0.37, Basophils # (Auto) 0.03 11/01/16 05:51 Test 10/31/16 10:40 11/01/16 05:51 11/01/16 09:15 Prothrombin Time 10.0 SECONDS (9.0-12.0) Prothromb Time International Ratio 0.9 (0.9-1.1) Activated Partial Thromboplast Time 30.3 SECONDS (21.0-31.0) Partial Thromboplastin Ratio 1.2 Estimated Average Glucose 137 mg/dl Hemoglobin A1c 6.4 % (4.5-5.6) Total Bilirubin 0.3 mg/dl (0.2-1) Aspartate Amino Transf (AST/SGOT) 20 U/L (15-37) Alanine Aminotransferase (ALT/SGPT) 37 U/L (12-78) Alkaline Phosphatase 89 U/L (45-117) Troponin I < 0.015 ng/ml (0-0.045) Total Protein 7.5 gm/dl (6.4-8.2) Albumin 3.5 gm/dl (3.4-5.0) Globulin 4.0 gm/dl (2.5-4.0) Albumin/Globulin Ratio 0.9 (0.9-2) Human Chorionic Gonadotropin, Qual NEG (NEG) White Blood Count 8.10 K/uL (4.8-10.8) Red Blood Count 4.51 M/uL (4.2-5.4) Hemoglobin 13.5 g/dL (12.0-16.0) Hematocrit 39.6 % (37-47) Mean Corpuscular Volume 87.8 fL (80-100) Mean Corpuscular Hemoglobin 29.9 pg (25-34) Mean Corpuscular Hemoglobin Concent 34.1 g/dl (32-36) Platelet Count 304 K/uL (130-400) Mean Platelet Volume 9.3 fL (7.4-10.4) Neutrophils (%) (Auto) 60.3 % Lymphocytes (%) (Auto) 26.5 % Monocytes (%) (Auto) 7.8 % Eosinophils (%) (Auto) 4.6 % Basophils (%) (Auto) 0.4 % Neutrophils # (Auto) 4.89 K/uL (1.4-6.5) Lymphocytes # (Auto) 2.15 K/uL (1.2-3.4) Monocytes # (Auto) 0.63 K/uL (0.11-0.59) Eosinophils # (Auto) 0.37 K/uL (0-0.5) Basophils # (Auto) 0.03 K/uL (0-0.2) RDW Standard Deviation 42.3 fL (36.4-46.3) RDW Coefficient of Variation 13.2 % (11.5-14.5) Immature Granulocyte % (Auto) 0.4 % Immature Granulocyte # (Auto) 0.03 K/uL (0.00-0.02) Anion Gap 7.0 mmol/L (3-11) Est Creatinine Clear Calc Drug Dose 149.8 ml/min Estimated GFR () 123.8 Estimated GFR (Non- 106.8 BUN/Creatinine Ratio 12.7 (10-20) Calcium Level 8.2 mg/dl (8.5-10.1) Triglycerides Level 458 mg/dl (0-150) Cholesterol Level 179 mg/dl (0-200) HDL Cholesterol 24 mg/dl LDL Cholesterol, Calculated mg/dl VLDL Cholesterol, Calculated mg/dl Cholesterol/HDL Ratio 7.5 Imaging As noted above in history of present illness Impression This is a 46-year-old female who presented with concerns for strokelike events of right hemisensory deficits and heaviness of the right upper extremity. Patient has had similar symptoms in the past in 2011 believed to be secondary to a tiny left pontine stroke. Patient is still symptomatic this morning but there is no evidence of an acute stroke on MRI. Patient also has been having slowly worsening daily headaches for the last month. She does not have primary migraine headaches, but current headaches do have some migrainous features to them. Likely headache etiology is either cervicogenic from chronic neck pain and stenosis, versus there is a component of right occipital neuralgia that could be setting off headaches. It appears that many of her current symptoms may have been exacerbated by manual manipulation of the cervical region by physical therapy this week. Considering the patient also reports elevated blood pressure recently cannot rule out a component of hypertension induced headaches. Plan I have ordered a single pulse dose of IV Solu-Medrol 1 g IV to be given today for treatment of recent intractable headaches. Recommend Medrol dose pack starting tomorrow. I have ordered a Lyme screen to rule out secondary causes for headaches I have ordered a B12 level and SPEP with immunofixation to rule out secondary causes of peripheral neuropathy symptoms (such she reports several years of bilateral numbness and tingling in her distal extremities) I have ordered a lupus anticoagulant, anticardiolipin antibodies, beta 2 glycoprotein due to her history of stroke in 2011 just to make sure she does not have anything that looks like antiphospholipid antibody syndrome, as this is typically treated with anticoagulation. Otherwise patient should continue aspirin 81 mg daily for stroke prevention. As an outpatient if the patient continues to have intractable headaches, would recommend a referral to pain management for evaluation of occipital nerve injections versus cervical injections. If the patient continues to have intractable headaches, could also follow up in the neurology clinic for further evaluation and treatment. In the future as an outpatient could consider restarting Topamax for headache prophylaxis since the patient has been on this in the past for mood without any reported side effects. Consider treating hypertension since this may be contributing to her intractable headaches. Continue with physical therapy as an outpatient Vascular risk factor modifications per primary care Neurology recommendations for vascular risk factor modifications: Blood pressure recommendations 130/80-110/70 Total cholesterol goal 100- 200 and LDL goal less than 100 Hemoglobin A1c goal less than 7 Encourage cardiovascular exercise at least 3 times a week for 30 minutes. From a neurological standpoint, the patient could be discharged later today after a dose of IV steroids (will need a prescription for Medrol dosepak as an outpatient) and once additional blood work has been drawn. If there is any questions or concerns, feel free to call/page me.
[2016-11-01] MEDS ORDERED: METHYLPREDNISOLONE IV 1,000 MG in DEXTROSE 5% 250ML 250 ML IV SCH (10:00)
--- NOTE | 2016-11-01 11:02 | ECHOCARDIOGRAM REPORT ---
*NOTICE TO RECEIVING DEMOCRAT AGENCY This information is strictly Confidential and protected under [place] law. [place] law prohibits you from making any further disclosure of this information unless further disclosure is expressly permitted by the written consent of the person to whom it pertains or is authorized by law. A general authorization for the release of medical or other information is not sufficient for this purpose. Hospital accepts no responsibility if the information is made available to any other person, INCLUDING THE PATIENT. Interpretation Summary * Name: REINALDO BOND Study Date: 10/31/2016 02:32 PM BP: 153/102 mmHg * Patient Location: C.EDB HR: 83 * : 1970 (M/d/yyyy) Gender: Female Height: 64 in * Age: 46 yrs Ethnicity: CA Weight: 297 lb * Ordering Physician: Milagros Cooper * Referring Physician: Self, Referred * Performed By: Shaquille Kim RCS * * Reason For Study: Cerebral Ischemia/ Embolus * BSA: 2.3 m2 * -- Conclusions -- * Left ventricular systolic function is normal. * No obvious PFO although assessment was sub-optimal. * Compared to a study from 04/2011, there is no significant difference. Procedure Details * A saline contrast injection was performed to assess for cardiac shunting. * The injection was performed through an intravenous line in the right arm. * The attending nurse who injected the saline contrast was Alanna Sorenson RN. * A total of 20 cc of agitated saline was given. Left Ventricle * The left ventricle is normal in size. * There is normal left ventricular wall thickness. * Ejection Fraction = >70 %. * Left ventricular systolic function is normal. * Diastolic function not well-characterized. Right Ventricle * The right ventricle is grossly normal size. * The right ventricular systolic function is normal. Atria * The left atrial size is normal. * No obvious PFO although assessment was sub-optimal. * Right atrial size is normal. Mitral Valve * The mitral valve is grossly normal. * Significant mitral regurgitation is absent. Tricuspid Valve * The tricuspid valve is not well visualized, but is grossly normal. Aortic Valve * The aortic valve is normal in structure and function. * No hemodynamically significant valvular aortic stenosis. * There is no significant aortic regurgitation. Great Vessels * The aortic root is normal size. Pericardium/Pleural * There is no pericardial effusion. MMode 2D Measurements and Calculations IVSd 1.2 cm LVIDd 4.2 cm LVIDs 2.3 cm LVPWd 1.0 cm IVS/LVPW 1.2 FS 43.8 % EDV(Teich) 77.8 ml ESV(Teich) 19.1 ml EF(Teich) 75.4 % EDV(cubed) 73.2 ml ESV(cubed) 13.0 ml EF(cubed) 82.3 % LV mass(C)d 161.6 grams LV mass(C)dI 69.8 grams/m\S\2 SV(Teich) 58.7 ml SI(Teich) 25.4 ml/m\S\2 SV(cubed) 60.2 ml SI(cubed) 26.0 ml/m\S\2 Ao root diam 3.1 cm Ao root area 7.8 cm\S\2 LVOT diam 2.0 cm LVOT area 3.2 cm\S\2 EDV(MOD-sp4) 99.2 ml ESV(MOD-sp4) 25.0 ml EF(MOD-sp4) 74.8 % EDV(MOD-sp2) 138.7 ml ESV(MOD-sp2) 42.7 ml EF(MOD-sp2) 69.2 % SV(MOD-sp4) 74.2 ml SI(MOD-sp4) 32.1 ml/m\S\2 SV(MOD-sp2) 96.0 ml SI(MOD-sp2) 41.5 ml/m\S\2 Doppler Measurements and Calculations MV E max jennifer 95.5 cm/sec MV A max jennifer 106.7 cm/sec MV E/A 0.89 MV dec time 0.09 sec Ao V2 max 134.6 cm/sec Ao max PG 7.2 mmHg Ao max PG (full) 2.2 mmHg BRENDA(V,A) 2.6 cm\S\2 BRENDA(V,D) 2.6 cm\S\2 LV V1 max PG 5.0 mmHg LV V1 max 111.9 cm/sec
[2016-11-01 11:53] VITALS: BP 153/88; PULSE 75; TEMP 36.7; O2SAT 96
[2016-11-01 12:00] VITALS: O2SAT 94
[2016-11-01] MEDS ORDERED: METH4PAK PO (14:22)
[2016-11-01 14:34] VITALS: BP 153/88; PULSE 75; TEMP 36.7; O2SAT 94
[2016-11-01 15:09] LABS: LYME DISEASE AB IGG NEG (NEG)
[2016-11-01 15:13] LABS: LYME DISEASE AB IGM NEG (NEG)
[2016-11-01] MEDS ORDERED: DVN80 PO (15:25)
[2016-11-08 22:42] LABS: B2 GLYCOPROTEIN IGA <9 SAU (<=20); B2 GLYCOPROTEIN IGG <9 SGU (<=20); B2 GLYCOPROTEIN IGM <9 SMU (<=20); LUPUS ANTICOAGULANT** TC36573X Negative (Negative); TOTAL PROTEIN 7.1 G/DL (6.2-8.3)
--- NOTE | 2016-11-14 06:01 | DISCHARGE SUMMARY ---
Please see dictated H and P for full details of her presentation. HISTORY OF PRESENT ILLNESS: The patient is a 46-year-old who presented with concerns for a stroke. She has onset headache which had been worse for the past month. No history of migraine headaches. She was doing physical therapy yesterday and when her therapist was manipulating her neck in the occipital area, she slowly had progressive numbness and tingling on the right side of her face, progressing over seconds, shortly thereafter right arm began to feel rubbery. She presented to the hospital for evaluation around 7:00 p.m. with her right leg also started to feel numb. In 2011, she had similar symptoms and imaging was consistent with a subacute left pontine stroke. MRI of the brain this admission showed nonspecific T2 hyperintensities likely consistent with microvascular ischemic changes. MRA of the head was unremarkable as were ultrasound of the carotids. Since her stroke workup was negative and there were characteristics for a primary migraine headache, the patient was treated as such. She was given 1 dose of IV Solu-Medrol secondary to recent intractable headaches and discharged with the Medrol Dosepak. Lyme screen was ordered to rule out other causes for headache. B12 and SPEP was ordered to rule out secondary causes of her peripheral neuropathy and hypercoagulable workup was also sent. Recommendations were to continue on aspirin therapy and if headaches persisted, referral for pain management for evaluation of occipital nerve injections versus cervical injections and follow up in neurology clinic for further evaluation and treatment such as considering Topamax for headache prophylaxis, continue with physical therapy as an outpatient and blood pressure control. The patient was deemed stable for discharge. Echocardiogram had normal left systolic function, no valvular heart disease. Time spent in review of the chart, discussion with the patient on the date of discharge 31 minutes.
== END 2016-11-01 17:29 | disposition home or self-care (01) ==
LOC: EDBD 10:31 → C.EDB 10:33 → C.2T 13:22 → ENRESERV 13:59 → UNDODISOB 11-01 15:11
PROVIDERS: ADMIT Family Medicine; ATTEND Family Medicine
DX: R20.0 Anesthesia of skin (principal); R53.1 Weakness; I69.398 Other sequelae of cerebral infarction; F31.9 Bipolar disorder, unspecified; I10 Essential (primary) hypertension; E78.1 Pure hyperglyceridemia; G47.33 Obstructive sleep apnea (adult) (pediatric); E66.9 Obesity, unspecified; K29.70 Gastritis, unspecified, without bleeding; Z79.82 Long term (current) use of aspirin; Z90.49 Acquired absence of other specified parts of digestive tract; Z80.0 Family history of malignant neoplasm of digestive organs; Z83.3 Family history of diabetes mellitus

== ENCOUNTER → 2016-11-14 | Outpatient (CLI) | payer OTHER ==
[~2016-11-14] MED LIST changes: -ASPEC81 PO; +ASPI-461 PO; +ATR10 PO; -BUPR200T2 PO; +DULO60CA44 PO; +DVN80 PO; +FERR50TA3 PO; +GARL1TAB8 PO; -GARLTAB3 PO; -IRON PO
--- NOTE | 2016-11-14 10:13 | DIAGNOSTIC IMAGING REPORT ---
C-SPINE ROUTINE 4 OR 5 VIEWS CLINICAL HISTORY: 46 years-old Female presenting with CERVICALGIA, right-sided nerve pain for 2 weeks. TECHNIQUE: Frontal, bilateral oblique, lateral, and open-mouth odontoid views of the cervical spine were obtained. COMPARISON: 08/29/2014. FINDINGS: The C6 vertebral body is the last fully visualized level, limiting evaluation. Interval anterior plate and screw fixation of C3-C6 as well as separate C6-7 fusion. No apparent hardware complication. Discectomy changes at C3-4 and C6-7. Vertebral bodies maintain normal height and alignment. Intervertebral disc spaces otherwise preserved. Mild osseous neural foraminal narrowing is suggested on the right at C3-4 and C4-5 and more severe osseous neural foraminal narrowing on the left at C4-5 through C6-7. No prevertebral soft tissue swelling. Atlantoaxial interval normal. Lung apices clear. IMPRESSION: Postsurgical changes of anterior cervical fusion. Multilevel osseous neural foraminal narrowing further detailed above. Electronically signed by: Calvin Patterson M.D. 11/14/2016 10:12 AM Dictated Date/Time: 11/14/2016 10:08 AM
== END | disposition home or self-care (01) ==
LOC: C.RADBC 09:34
PROVIDERS: ATTEND Physician Assistant Medical
DX: M99.61 Osseous and subluxation stenosis of intervertebral foramina of cervical region (principal); Z98.1 Arthrodesis status

== ENCOUNTER 2017-03-12 04:08 | Emergency (ER) | payer OTHER ==
[~2017-03-12] VITALS: Ht 162.6 cm; Wt 135.3 kg
[2017-03-12 04:10] VITALS: TEMP 36.8; Ht 162.6 cm; Wt 135.3 kg
[2017-03-12] MEDS ORDERED: NITROGLYCERIN 0.4 MG SL PER TAB CHARGE ONE (04:32)
[2017-03-12] MEDS ORDERED: NITROGLYCERIN 0.4 MG SL PER TAB CHARGE SL STA (04:40)
--- NOTE | 2017-03-12 04:54 | EMERGENCY ROOM VISIT NOTE ---
History Report prepared by Tavon: Scar Elder Under the Supervision of: Dr. Elda Carlin D.O. First contact with patient: 04:19 Chief Complaint: CARDIAC ASSESSMENT Stated Complaint: CHEST DISCOMFORT,PAIN SHOULDER Nursing Triage Summary: c/o intermittent pain in left chest x 1 week. pt woke this am at 0230 with pain in left chest that radiates into shoulder and neck with nausea. hx HTN. History of Present Illness The patient is a 46 year old female who presents to the Emergency Room with complaints of intermittent left sided chest pain for the past week which she describes as a pulling. She notes that she woke up around 0230 with shoulder pain and neck pain which also felt like pulling. She states that she then called her doctor, and they told her to take 2 aspirin and come to the ED for evaluation. The patient states that she is nauseous, and she is denying any shortness of breath, abdominal pain, leg pain, and leg swelling. Also, she has numbness in bilateral hands, though this is chronic from a previous stroke in 2013. The patient additionally has diabetes and hypertension and a family history of heart attacks and colorectal cancer with her father. The patient denies smoking. She reports that she has been gaining weight recently. Source of History: patient Onset: a week ago Position: chest (left) Quality: other (pulling) Timing: intermittent Associated Symptoms: + nausea, No SOB, No abdominal pain Review of Systems See HPI for pertinent positives & negatives. A total of 10 systems reviewed and were otherwise negative. Past Medical & Surgical Medical Problems: (1) Anxiety disorder (2) Bipolar disorder (3) Depressive disorder (4) Diabetes mellitus (5) Facial paresthesia (6) Hypertensive disorder, systemic arterial (7) Hypertriglyceridemia (8) Obstructive sleep apnea (9) Right arm weakness Surgical Problems: (1) History of herniorrhaphy (2) Hx of cholecystectomy (3) Hx of cholecystectomy Family History Cancer Diabetes mellitus Heart disease Hypertension Kidney disease Kidney stones Stroke Social History Smoking Status: Never Smoker Drug Use: none Marital Status: in relationship Housing Status: lives with family Occupation Status: employed Current/Historical Medications Scheduled Ascorbic Acid (Ascorbic Acid), 500 MG PO QAM Aspirin (Aspirin), 81 MG PO DAILY B-Complex Vitamins (Vitamin B Complex), 1 TAB PO QAM Cholecalciferol (Vitamin D), 1 TABS PO QAM Duloxetine Hcl (Cymbalta), 60 MG PO DAILY Ferrous Sulfate (Iron (Ferrous Sulfate)), 65 MG PO DAILY Garlic (Garlic), 1 TAB PO DAILY Lisinopril (Prinivil), 20 MG PO DAILY Multivitamin (Multivitamin), 1 TAB PO QAM Miscellaneous Medications Etonogestrel (Nexplanon), 68 MG SC Allergies Coded Allergies: Latex1 -Allergic Contact Dermititis (Verified Allergy, Unknown, RASH, ) Venlafaxine (Verified Adverse Reaction, Unknown, high blood pressure, ) Physical Exam Vital Signs Date Time Temp Pulse Resp B/P (MAP) Pulse Ox O2 Delivery O2 Flow Rate FiO2 03/12/17 06:12 82 18 110/64 96 03/12/17 05:04 95 18 121/79 95 Room Air 03/12/17 04:54 99 20 138/73 92 Room Air 03/12/17 04:47 83 20 140/84 95 Room Air 03/12/17 04:40 88 20 112/59 94 Room Air 03/12/17 04:20 91 03/12/17 04:18 91 20 155/104 03/12/17 04:15 99 Room Air 03/12/17 04:10 36.8 99 24 164/116 99 Room Air Physical Exam General: Obese female who appears uncomfortable on exam. HEENT: Head - normocephalic and atraumatic Pupils are equal, round, and reactive to light. Extraocular eye muscles are intact, and sclera are anicteric. Nose - moist nasal mucosa without discharge. Mouth - moist buccal mucosa. Oropharynx is nonerythematous and there is no tonsillar exudate or edema noted. Neck: Supple; no JVD, nuchal rigidity, cervical lymphadenopathy, or auscultated bruits. Heart: Regular rate and rhythm. There is a normal S1 and S2 with no murmurs, clicks, or gallops appreciated. Lungs: Clear to auscultation bilaterally with no wheezes, rales, or rhonchi. Abdomen: Soft, completely nontender, nondistended, with good bowel sounds. There are no palpable pulsatile masses or hepatosplenomegaly. There is no guarding, rigidity, or rebound noted. Extremities: No evidence of cyanosis, clubbing, or edema. There are easily palpable peripheral pulses. Skin: warm and dry with good turgor and no rashes. Medical Decision & Procedures ER Provider Diagnostic Interpretation: X-ray results as stated below per interpretation by me and the radiologist: Chest One View Portable: No obvious pulmonary pathologies. No cardiomegaly. Laboratory Results 03/12/17 04:20 03/12/17 04:20 Test 03/12/17 04:20 Red Blood Count 4.49 M/uL (4.2-5.4) Mean Corpuscular Volume 92.7 fL (80-100) Mean Corpuscular Hemoglobin 31.0 pg (25-34) Mean Corpuscular Hemoglobin Concent 33.4 g/dl (32-36) RDW Standard Deviation 44.9 fL (36.4-46.3) RDW Coefficient of Variation 13.3 % (11.5-14.5) Mean Platelet Volume 10.0 fL (7.4-10.4) Anion Gap 7.0 mmol/L (3-11) Est Creatinine Clear Calc Drug Dose 115.0 ml/min Estimated GFR () 97.3 Estimated GFR (Non- 84.0 BUN/Creatinine Ratio 14.1 (10-20) Calcium Level 8.6 mg/dl (8.5-10.1) Total Bilirubin 0.3 mg/dl (0.2-1) Aspartate Amino Transf (AST/SGOT) 24 U/L (15-37) Alanine Aminotransferase (ALT/SGPT) 47 U/L (12-78) Alkaline Phosphatase 93 U/L (45-117) Total Creatine Kinase 91 U/L (26-192) Creatine Kinase MB 0.6 ng/ml (0.5-3.6) Creatine Kinase MB Ratio 0.7 (0-3.0) Troponin I < 0.015 ng/ml (0-0.045) Total Protein 7.4 gm/dl (6.4-8.2) Albumin 3.4 gm/dl (3.4-5.0) Globulin 4.0 gm/dl (2.5-4.0) Albumin/Globulin Ratio 0.9 (0.9-2) Laboratory results per my review. Medications Administered Medications (Trade) Dose Ordered Sig/Mamadou Route Start Time Stop Time Status Last Admin Dose Admin Nitroglycerin (Nitrostat Tab) 0.4 mg STK-MED ONCE .ROUTE 03/12/17 04:32 03/12/17 04:33 DC 03/12/17 04:34 0.4 MG Nitroglycerin (Nitrostat Tab) 0.4 mg Q5M STAT SL 03/12/17 04:40 03/12/17 04:42 DC 03/12/17 04:50 0.4 MG Procedure Nitroglycerin SL ECG Indication: chest pain Rate (beats per minute): 96 Rhythm: normal sinus Findings: no acute ischemic change, no ectopy ED Course 0419: Past medical records reviewed. The patient was evaluated in room B2. A complete history and physical exam was performed. A twelve-lead EKG was obtained as described above. An IV lock was initiated and labs were drawn as above. 0432: Nitrostat Tab 0.4mg PO. A portable chest x-ray was obtained. 0440: Nitrostat Tab 0.4mg SL 0501: I reevaluated the patient, and her pain went from 5/10 to a 3/10 with 3 nitro 0526: I reevaluated the patient, and her pain is about the same. She declined wanting and smells for pain. 0551: I had a long conversation with the patient about staying in the hospital. She is refusing to stay. I strongly recommended that she stay in the hospital for cardiology evaluation and stress testing. She declined stating that there are too many responsibilities at home. I reviewed her multiple risk factors for heart disease including obesity, diabetes, hypertension, hypercholesterolemia, and a significant family history. No matter what I explained, the patient was still unwilling to stay in the hospital for any further care. I've asked the patient to follow-up with her PCP. She plans to do that this week. Medical Decision The patient is a 46 year old female who presents to the ED with chest pain. Differential diagnosis includes GERD, pleurisy, STEMI, acute coronary syndrome, costochondritis, aortic dissection Lab results: white count of 9.4, stable H&H, glucose 149, normal renal function , normal LFTs, negative cardiac enzymes. The patient has been having intermittent episodes of chest discomfort both at rest and with exercise over the past one week. She presented tonight because the discomfort in the chest seemed to worsen and radiate into her left arm and left jaw. The patient to get some relief of her discomfort with nitroglycerin. It did bring her blood pressure down nicely. The pain in the chest came down by 2 points. I offered to give her something else for the discomfort in the chest and she declined. The patient explained to me that there was no other family at home to care for her dogs and therefore she could not stay in the hospital. I explained to her that I was concerned about her going home to an empty house if she were to have additional symptoms or problems. I suggested that the patient called 911 immediately if she develops any worsening symptoms. Medication Reconcilliation Current Medication List: was personally reviewed by me Blood Pressure Screening Patient's blood pressure: Normal blood pressure Impression Primary Impression: Left sided chest pain Scribe Attestation The scribe's documentation has been prepared under my direction and personally reviewed by me in its entirety. I confirm that the note above accurately reflects all work, treatment, procedures, and medical decision making performed by me. Departure Information Dispostion Home / Self-Care Referrals Lindsey Zhang (PCP) Forms IMPORTANT VISIT INFORMATION Patient Instructions ED Chest Pain Atypical Unkn Cause, My [facility] Additional Instructions Rest. Limit any strenuous activity. You are refusing to stay in the hospital as suggested by your ER doctor. If you develop ANY worsening symptoms, you MUST call 911. Please contact PCP this AM for follow up.
[2017-03-12 05:06] LABS: HEMATOCRIT 41.6 % (37-47); MEAN CELL VOLUME 92.7 fL (80-100); MEAN CORPUSCULAR HGB CONC 33.4 g/dl (32-36); PLATELET COUNT 345 K/uL (130-400); RED BLOOD COUNT 4.49 M/uL (4.2-5.4); WHITE BLOOD COUNT 9.44 K/uL (4.8-10.8)
[2017-03-12 05:30] LABS: ALT/SGPT 47 U/L (12-78); AST/SGOT 24 U/L (15-37); BLOOD UREA NITROGEN 12 mg/dl (7-18); BUN/CREATININE RATIO 14.1 (10-20); CALCIUM 8.6 mg/dl (8.5-10.1); CARBON DIOXIDE 25 mmol/L (21-32); CHLORIDE 104 mmol/L (98-107); CREATININE 0.83 mg/dl (0.60-1.20); GLUCOSE 149 mg/dl (70-99); POTASSIUM 3.6 mmol/L (3.5-5.1); SODIUM 136 mmol/L (136-145)
[2017-03-12 05:35] LABS: ALB/GLOB RATIO 0.9 (0.9-2); ALKALINE PHOSPHATASE 93 U/L (45-117); CKMB/CK RATIO 0.7 (0-3.0)
[2017-03-12] MEDS ORDERED: LISI20TA3 PO (05:35)
[2017-03-12 06:12] VITALS: BP 110/64; PULSE 82; O2SAT 96
--- NOTE | 2017-03-12 08:31 | DIAGNOSTIC IMAGING REPORT ---
SINGLE VIEW CHEST CLINICAL HISTORY: Atypical chest pain. FINDINGS: An AP, portable, upright chest radiograph is compared to study dated 10/31/2016. The examination is degraded by portable technique, apical lordotic positioning, and patient rotation. The cardiomediastinal silhouette is unremarkable. The lungs and pleural spaces are clear. No pneumothorax is seen. The bony thorax is grossly intact. Fusion hardware is seen in the lower cervical spine. IMPRESSION: No acute cardiopulmonary abnormality. Electronically signed by: Elmer Tyler M.D. 03/12/2017 8:30 AM Dictated Date/Time: 03/12/2017 7:25 AM
== END 2017-03-12 06:13 | disposition home or self-care (01) ==
LOC: C.EDB 04:09
DX: R07.9 Chest pain, unspecified (principal); E11.9 Type 2 diabetes mellitus without complications; I10 Essential (primary) hypertension; F41.9 Anxiety disorder, unspecified; F32.9 Major depressive disorder, single episode, unspecified; Z90.49 Acquired absence of other specified parts of digestive tract; Z98.890 Other specified postprocedural states; Z82.49 Family history of ischemic heart disease and other diseases of the circulatory system; Z80.0 Family history of malignant neoplasm of digestive organs; Z83.3 Family history of diabetes mellitus; Z84.1 Family history of disorders of kidney and ureter; Z82.3 Family history of stroke; Z79.82 Long term (current) use of aspirin; Z79.899 Other long term (current) drug therapy

== ENCOUNTER → 2017-08-18 | Outpatient (CLI) | payer OTHER ==
[~2017-08-18] MED LIST changes: -ATR10 PO; -DVN80 PO; +LISI20TA3 PO
== END | disposition home or self-care (01) ==
LOC: C.RDSM 13:38
PROVIDERS: ATTEND Physical Medicine & Rehabilitation Sports Medicine
DX: M25.531 Pain in right wrist (principal); M25.532 Pain in left wrist; R20.0 Anesthesia of skin